=== PATIENT | male | born 1965 | race Caucasian/White ===

== ENCOUNTER 2017-12-26 22:15 | Outpatient (REF) | payer BC, SELFPAY ==
[2017-12-26 22:40] LABS: Abs Immature Grans 0.01 k/cumm (0.0-0.09); Absolute Basophil Count 0.02 k/cumm (0.0-0.2); Absolute Eosinophil Count 0.15 k/cumm (0.0-0.7); Absolute Lymphocyte Count 1.14 k/cumm (1.2-3.4); Absolute Monocyte Count 0.66 k/cumm (0.11-0.7); Absolute Neutrophil Count 2.65 k/cumm (1.2-6.7); Basophils % 0.4; Eosinophils % 3.2; HCT 45.6 % (40.0-50.0); HGB 15.2 g/dL (13.5-17.5); Immature Grans % 0.2; Lymphocytes % 24.6; Mean Corp. HGB Concentration 33.3 g/dL (32.0-36.0); Mean Platelet Volume 10.6 fL (8.0-11.0); Monocytes % 14.3; Neutrophils % 57.3; Platelet Count 215 x1000/uL (130-400); RBC 5.24 m/cumm (4.50-6.00); RBC Distribution Width 13.9 % (11.8-14.1); White Blood Cell Count 4.63 k/cumm (4.4-10.8)
[2017-12-26 22:50] LABS: ALT 46 U/L (12-78); AST 29 U/L (15-37); Albumin 3.7 g/dL (3.4-5.0); Alkaline Phosphatase 74 U/L (46-116); Anion Gap 8.7 mmol/L (3-11); BUN 23 mg/dL (7-18); Bilirubin, Total 0.4 mg/dL (0.2-1.0); CO2 27.3 mmol/L (21.0-32.0); CREATININE 0.93 mg/dL (0.70-1.30); Calcium 8.6 mg/dL (8.5-10.1); Chloride 109 mmol/L (98-107); Cholesterol 203 mg/dL (50-200); Glucose 72 mg/dL (70-100); HDL Cholesterol 52 mg/dL (40-60); LDL CHOLESTEROL 141 mg/dL (<100); Potassium 4.4 mmol/L (3.5-5.1); Sodium 145 mmol/L (136-145); TSH (W/Ref FT4) 0.91 uIU/mL (0.358-3.74); Total Protein 6.9 g/dL (6.4-8.2); Triglyceride 99 mg/dL (30-150)
[2017-12-26 23:41] LABS: Hemoglobin A1C 5.5 % (4.5-6.2)
== END 2017-12-26 22:35 ==
LOC: NCHCN 22:15
PROVIDERS: PCP Nurse Practitioner Family; Visit Provider Nurse Practitioner Family
DX: R53.83 Other fatigue (principal); Z00.00 Encounter for general adult medical examination without abnormal findings; E66.9 Obesity, unspecified
CPT/HCPCS: 80053; 80061; 83721; 83036; 84443; 85025

== ENCOUNTER 2022-01-19 15:34 | Outpatient (REF) | payer BC, SELFPAY ==
[2022-01-19 20:48] LABS: Hemoglobin A1C 5.6 % (<5.7)
[2022-01-19 20:51] LABS: ALT 46 U/L (16-63); AST 37 U/L (15-37); Alkaline Phosphatase 65 U/L (46-116); Anion Gap 9.6 mmol/L (3-11); BUN 23 mg/dL (7-18); Bilirubin, Total 0.5 mg/dL (0.2-1.0); CO2 26.4 mmol/L (21.0-32.0); CREATININE 0.9 mg/dL (0.70-1.30); Calcium 9.6 mg/dL (8.5-10.1); Calculated LDL 117 mg/dL (<100); Chloride 103 mmol/L (98-107); Cholesterol 191 mg/dL (<200); Estimated GFR 99.62 (mL/min/1.73m2); Glucose 78 mg/dL (74-106); HDL Cholesterol 56 mg/dL (40-60); Potassium 4.3 mmol/L (3.5-5.1); Sodium 139 mmol/L (136-145); Total Protein 7.5 g/dL (6.4-8.2); Triglyceride 93 mg/dL (<150)
== END 2022-01-19 15:35 | disposition home or self-care (01) ==
LOC: NCHCN 15:34
PROVIDERS: PCP Nurse Practitioner Family; Visit Provider Nurse Practitioner Family
DX: E66.9 Obesity, unspecified (principal); R03.0 Elevated blood-pressure reading, without diagnosis of hypertension; Z13.1 Encounter for screening for diabetes mellitus; Z13.220 Encounter for screening for lipoid disorders
CPT/HCPCS: 80053; 80061; 83036

== ENCOUNTER 2022-02-16 14:48 | Outpatient (REF) | payer BC, SELFPAY ==
[2022-02-16 15:48] LABS: Anion Gap 6.9 mmol/L (3-11); BUN 21 mg/dL (7-18); CO2 28.1 mmol/L (21.0-32.0); Calcium 9.6 mg/dL (8.5-10.1); Chloride 105 mmol/L (98-107); Estimated GFR 87.24 (mL/min/1.73m2); Glucose 79 mg/dL (74-106); Potassium 4.2 mmol/L (3.5-5.1); Sodium 140 mmol/L (136-145)
== END 2022-02-16 14:49 | disposition home or self-care (01) ==
LOC: NCHCN 14:48
PROVIDERS: PCP Nurse Practitioner Family; Visit Provider Nurse Practitioner Family
DX: R03.0 Elevated blood-pressure reading, without diagnosis of hypertension (principal)
CPT/HCPCS: 80048

== ENCOUNTER 2022-03-02 19:27 | Outpatient (REF) | payer BC, SELFPAY ==
[2022-03-02 15:21] LABS: Anion Gap 5.9 mmol/L (3-11); BUN 20 mg/dL (7-18); CO2 28.1 mmol/L (21.0-32.0); Calcium 9.3 mg/dL (8.5-10.1); Chloride 102 mmol/L (98-107); Estimated GFR 87.24 (mL/min/1.73m2); Glucose 84 mg/dL (74-106); Potassium 4.2 mmol/L (3.5-5.1); Sodium 136 mmol/L (136-145)
== END 2022-03-02 19:28 | disposition home or self-care (01) ==
LOC: NCHCN 19:27
PROVIDERS: PCP Nurse Practitioner Family; Visit Provider Nurse Practitioner Family
DX: R03.0 Elevated blood-pressure reading, without diagnosis of hypertension (principal)
CPT/HCPCS: 80048

== ENCOUNTER 2022-03-25 13:54 | Outpatient (REF) | payer BC, SELFPAY ==
[2022-03-25 14:33] LABS: Anion Gap 9.7 mmol/L (3-11); BUN 23 mg/dL (7-18); CO2 25.3 mmol/L (21.0-32.0); CREATININE 0.9 mg/dL (0.70-1.30); Calcium 9.3 mg/dL (8.5-10.1); Chloride 102 mmol/L (98-107); Glucose 72 mg/dL (74-106); Sodium 137 mmol/L (136-145)
== END 2022-03-25 13:55 | disposition home or self-care (01) ==
LOC: NCHCN 13:54
PROVIDERS: PCP Nurse Practitioner Family; Visit Provider Nurse Practitioner Family
DX: I10 Essential (primary) hypertension (principal)
CPT/HCPCS: 80048

== ENCOUNTER 2022-04-29 17:09 | Outpatient (REF) | payer BC, SELFPAY ==
[2022-04-29 21:00] LABS: Anion Gap 8.4 mmol/L (3-11); BUN 23 mg/dL (7-18); CO2 25.6 mmol/L (21.0-32.0); CREATININE 1.5 mg/dL (0.70-1.30); Calcium 9.4 mg/dL (8.5-10.1); Chloride 105 mmol/L (98-107); Estimated GFR 53.63 (mL/min/1.73m2); Glucose 86 mg/dL (74-106); Potassium 4.2 mmol/L (3.5-5.1); Sodium 139 mmol/L (136-145)
== END 2022-04-29 17:10 | disposition home or self-care (01) ==
LOC: NCHCN 17:09
PROVIDERS: PCP Nurse Practitioner Family; Visit Provider Nurse Practitioner Family
DX: I10 Essential (primary) hypertension (principal)
CPT/HCPCS: 80048

== ENCOUNTER 2022-05-07 12:17 | Outpatient (REF) | payer BC, SELFPAY ==
[2022-05-07 16:25] LABS: Anion Gap 11.7 mmol/L (3-11); BUN 22 mg/dL (7-18); CO2 23.3 mmol/L (21.0-32.0); CREATININE 0.9 mg/dL (0.70-1.30); Calcium 9.6 mg/dL (8.5-10.1); Chloride 104 mmol/L (98-107); Glucose 93 mg/dL (74-106); Potassium 3.9 mmol/L (3.5-5.1); Sodium 139 mmol/L (136-145)
== END 2022-05-07 12:18 | disposition home or self-care (01) ==
LOC: NCHCN 12:17
PROVIDERS: PCP Nurse Practitioner Family; Visit Provider Nurse Practitioner Family
DX: I10 Essential (primary) hypertension (principal)
CPT/HCPCS: 80048

== ENCOUNTER 2022-08-26 12:25 | Outpatient (REF) | payer BC, SELFPAY ==
[2022-08-26 14:52] LABS: Anion Gap 9.3 mmol/L (3-11); BUN 20 mg/dL (7-18); CO2 27.7 mmol/L (21.0-32.0); CREATININE 0.9 mg/dL (0.70-1.30); Calcium 9.7 mg/dL (8.5-10.1); Chloride 103 mmol/L (98-107); Glucose 89 mg/dL (74-106); Potassium 4.3 mmol/L (3.5-5.1); Sodium 140 mmol/L (136-145)
[2022-08-26 22:18] LABS: PSA, Screening 0.6 ng/mL (<=3.5)
== END 2022-08-26 12:26 | disposition home or self-care (01) ==
LOC: NCHCN 12:25
PROVIDERS: PCP Nurse Practitioner Family; Visit Provider Registered Nurse
DX: I10 Essential (primary) hypertension (principal); Z12.5 Encounter for screening for malignant neoplasm of prostate
CPT/HCPCS: 80048; 84153

== ENCOUNTER 2023-05-09 13:06 | Outpatient (CLI) | payer BC, SELFPAY ==
--- NOTE | 2023-05-09 11:15 | DI.RAD_ITS ---
Exam(s) XR STANDING ALIGNMENT EXAM: XR STANDING ALIGNMENT CLINICAL HISTORY: TKR Planning. TECHNIQUE: 2D digital imaging was performed. Four images were obtained. COMPARISON: DOC,DX MO KNEE RIGHT MIN 4V from 05/16/2018 DOC,DX MO KNEE LEFT MIN 4V from 05/16/2018 DOC,DX XR KNEE BILAT 4V* from 07/14/2022 FINDINGS: BONES: The hips are well maintained. Moderate degenerative changes are seen in the knees characteriz ed by joint space narrowing and osteophytes. The findings are most marked in the medial femoral tibi al joints of each knee. The ankles are well maintained.There is no significant leg length discrepanc y. SOFT TISSUE: Normal. IMPRESSION: Moderate osteoarthritis of the knees bilaterally. DATA REPOSITORY: RADIATION DOSE DELIVERED:
--- OUTSIDE RECORDS SUMMARY | 2023-05-09 13:16 | XMS_ITS | CCD ---
Author Name Unknown Address [address] [place] [address] [id number] Organization Unknown Address [address] [place], [place] [id number] Care Team Providers Care Independent Sales Representative Name Role Phone BRYAN BAKER Attending Physician [phone] BRYAN BAKER Rounding (Secondary) Physician [phone] Vital Signs Unknown or Not Available. Allergies Unknown or Not Available. Procedures Unknown or Not Available. History of Immunizations Unknown or Not Available. Problems Unknown or Not Available. Results Unknown or Not Available. Active Medications Unknown or Not Available. Medications Administered During Visit Unknown or Not Available. Encounters Encounter Diagnosis Diagnosis Code Start Date Idiopathic osteoarthritis [id number] 2022 Social History Smoking Status Code Start Date End Date Never smoker [id number] Patient Decision Aids Unknown or Not Available. Discharge Instructions You were admitted to [facility] on 08/02/2022 00:00 with a principal diagnosis of Bilateral primary osteoarthritis of knee You were discharged from [facility] on 08/02/2022 00:00 Should you have any questions prior to discharge, please contact a member of your healthcare team. If you have left the hospital and have any questions, please contact your primary care physician. Chief Complaint and Reason For Visit Unknown or Not Available. Function Status Unknown or Not Available. Plan of Care Unknown or Not Available. Referral/Transition of Care Unknown or Not Available.
--- OUTSIDE RECORDS SUMMARY | 2023-05-09 13:16 | XMS_ITS | CCD ---
Author Name Unknown Address [address] [place] [address] [id number] Organization Unknown Address [address] [place], [place] [id number] Care Team Providers Care Qa Lead Name Role Phone MANUELA CHAMORRO Attending Physician [phone] MANUELA CHAMORRO Rounding (Secondary) Physician [phone] Vital Signs Unknown or Not Available. Allergies Unknown or Not Available. Procedures Unknown or Not Available. History of Immunizations Unknown or Not Available. Problems Unknown or Not Available. Results Unknown or Not Available. Active Medications Unknown or Not Available. Medications Administered During Visit Unknown or Not Available. Encounters Encounter Diagnosis Diagnosis Code Start Date Idiopathic osteoarthritis [id number] 2022 Social History Smoking Status Code Start Date End Date Never smoker [id number] Patient Decision Aids Unknown or Not Available. Discharge Instructions You were admitted to [facility] on 07/21/2022 00:00 with a principal diagnosis of Bilateral primary osteoarthritis of knee You were discharged from [facility] on 07/21/2022 00:00 Should you have any questions prior [...]
--- OUTSIDE RECORDS SUMMARY | 2023-05-09 13:16 | XMS_ITS | CCD ---
Author Name Unknown Address [address] [place] [id number] Organization Unknown Address [address] [place], [place] [id number] Care Team Providers Care Change Management Expert Name Role Phone BRYAN BAKER Attending Physician [phone] BRYAN BAKER Rounding (Secondary) Physician [phone] Vital Signs Unknown or Not Available. Allergies Unknown or Not Available. Procedures Unknown or Not Available. History of Immunizations Unknown or Not Available. Problems Unknown or Not Available. Results Unknown or Not Available. Active Medications Unknown or Not Available. Medications Administered During Visit Unknown or Not Available. Encounters Encounter Diagnosis Diagnosis Code Start Date Idiopathic osteoarthritis [id number] 2021 Social History Smoking Status Code Start Date End Date Never smoker [id number] Patient Decision Aids Unknown or Not Available. Discharge Instructions You were admitted to [facility] on 08/25/2021 13:38 with a principal diagnosis of Bilateral primary osteoarthritis of knee You were discharged from [facility] on 08/25/2021 00:00 Should you have any questions prior [...]
--- OUTSIDE RECORDS SUMMARY | 2023-05-09 13:17 | XMS_ITS | CCD ---
Author Name Unknown Address [address] [place] [id number] Organization Unknown Address [address] [place], [place] [id number] Care Team Providers Care Underpresser Hand Name Role Phone BERTRAND MONCADA Attending Physician [phone] BERTRAND MONCADAing (Secondary) Physician [phone] Vital Signs Unknown or Not Available. Allergies Unknown or Not Available. Procedures Unknown or Not Available. History of Immunizations Unknown or Not Available. Problems Unknown or Not Available. Results Unknown or Not Available. Active Medications Unknown or Not Available. Medications Administered During Visit Unknown or Not Available. Encounters Encounter Diagnosis Diagnosis Code Start Date Idiopathic osteoarthritis 311261823 2021 Social History Smoking Status Code Start Date End Date Never smoker [id number] Patient Decision Aids Unknown or Not Available. Discharge Instructions You were admitted to [facility] on 09/03/2021 14:53 with a principal diagnosis of Bilateral primary osteoarthritis of knee You were discharged from [facility] on 09/03/2021 00:00 Should you have any questions prior [...]
--- OUTSIDE RECORDS SUMMARY | 2023-05-09 13:17 | XMS_ITS | CCD ---
Author Name Unknown Address [address] [place], [place] [id number] Organization Unknown Address [address] [place], [place] [id number] Care Team Providers Care Child Psychiatrist Name Role Phone AYE BAI Attending Physician [phone] AYE BAI Rounding (Secondary) Physician [phone] Vital Signs Unknown or Not Available. Allergies Unknown or Not Available. Procedures Unknown or Not Available. History of Immunizations Unknown or Not Available. Problems Unknown or Not Available. Results Unknown or Not Available. Active Medications Unknown or Not Available. Medications Administered During Visit Unknown or Not Available. Encounters Encounter Diagnosis Diagnosis Code Start Date Idiopathic osteoarthritis 995902320 2022 Social History Smoking Status Code Start Date End Date Never smoker [id number] Patient Decision Aids Unknown or Not Available. Discharge Instructions You were admitted to [facility] on 03/01/2023 11:15 with a principal diagnosis of Bilateral primary osteoarthritis of knee You were discharged from [facility] on 03/01/2023 13:21 Should you have any questions prior to [...]
== END 2023-05-09 13:07 | disposition home or self-care (01) ==
LOC: DIORS 13:08
PROVIDERS: PCP Nurse Practitioner Family; Visit Provider Physician Assistant
DX: M17.0 Bilateral primary osteoarthritis of knee (principal)
CPT/HCPCS: 77073

== ENCOUNTER 2023-06-02 01:20 | Outpatient (CLI) | payer BC, SELFPAY ==
--- OUTSIDE RECORDS SUMMARY | 2023-06-02 01:22 | XMS_ITS | CCD ---
Author Name Unknown Address [address] [place] [id number] Organization Unknown Address [address] [place], [place] [phone] Care Team Providers Care Strategic Sourcing Specialist Name Role Phone BRYAN BAKER Attending Physician [phone] BRYAN BAKER Rounding (Secondary) Physician [phone] Vital Signs Unknown or Not Available. Allergies Unknown or Not Available. Procedures Unknown or Not Available. History of Immunizations Unknown or Not Available. Problems Unknown or Not Available. Results Unknown or Not Available. Active Medications Unknown or Not Available. Medications Administered During Visit Unknown or Not Available. Encounters Encounter Diagnosis Diagnosis Code Start Date Idiopathic osteoarthritis [id number] 2022 Social History Smoking Status Code Start Date End Date Never smoker [id number] Patient Decision Aids Unknown or Not Available. Discharge Instructions You were admitted to [facility] on 08/02/2022 00:00 with a principal diagnosis of Bilateral primary osteoarthritis of knee You were discharged from [facility] on 08/02/2022 00:00 Should you have [...]
--- OUTSIDE RECORDS SUMMARY | 2023-06-02 01:22 | XMS_ITS | CCD ---
Author Name Unknown Address [address] [place] [address] [id number] Organization Unknown Address [address] [place], [place] [phone] Care Team Providers Care Security Escort Name Role Phone MANUELA CHAMORRO Attending Physician [phone] MANUELA CHAMORRO Rounding (Secondary) Physician [phone] Vital Signs Unknown or Not Available. Allergies Unknown or Not Available. Procedures Unknown or Not Available. History of Immunizations Unknown or Not Available. Problems Unknown or Not Available. Results Unknown or Not Available. Active Medications Unknown or Not Available. Medications Administered During Visit Unknown or Not Available. Encounters Encounter Diagnosis Diagnosis Code Start Date Idiopathic osteoarthritis 138953776 2022 Social History Smoking Status Code Start Date End Date Never smoker [id number] Patient Decision Aids Unknown or Not Available. Discharge Instructions You were admitted to [facility] on 07/21/2022 00:00 with a principal diagnosis of Bilateral primary osteoarthritis of knee You were discharged from [facility] on 07/21/2022 00:00 Should you have [...]
--- OUTSIDE RECORDS SUMMARY | 2023-06-02 01:23 | XMS_ITS | CCD ---
Author Name Unknown Address [address] [place] [id number] Organization Unknown Address [address] [place], [place] [phone] Care Team Providers Care Commercial Airline Pilot Name Role Phone BERTRAND MONCADA Attending Physician [phone] BERTRAND MONCADAing (Secondary) Physician [phone] Vital Signs Unknown or Not Available. Allergies Unknown or Not Available. Procedures Unknown or Not Available. History of Immunizations Unknown or Not Available. Problems Unknown or Not Available. Results Unknown or Not Available. Active Medications Unknown or Not Available. Medications Administered During Visit Unknown or Not Available. Encounters Encounter Diagnosis Diagnosis Code Start Date Idiopathic osteoarthritis [id number] 2021 Social History Smoking Status Code Start Date End Date Never smoker [id number] Patient Decision Aids Unknown or Not Available. Discharge Instructions You were admitted to [facility] on 09/03/2021 14:53 with a principal diagnosis of Bilateral primary osteoarthritis of knee You were discharged from [facility] on 09/03/2021 00:00 Should you have [...]
--- OUTSIDE RECORDS SUMMARY | 2023-06-02 01:23 | XMS_ITS | CCD ---
Author Name Unknown Address [address] [place], [place] [id number] Organization Unknown Address [address] [place], [place] [id number] Care Team Providers Care Furniture Repair Technician Name Role Phone AYE BAI Attending Physician [phone] AYE BAI Rounding (Secondary) Physician [phone] Vital Signs Unknown or Not Available. Allergies Unknown or Not Available. Procedures Unknown or Not Available. History of Immunizations Unknown or Not Available. Problems Unknown or Not Available. Results Unknown or Not Available. Active Medications Unknown or Not Available. Medications Administered During Visit Unknown or Not Available. Encounters Encounter Diagnosis Diagnosis Code Start Date Idiopathic osteoarthritis 183904609 2022 Social History Smoking Status Code Start Date End Date Never smoker [id number] Patient Decision Aids Unknown or Not Available. Discharge Instructions You were admitted to [facility] on 03/01/2023 11:15 with a principal diagnosis of Bilateral primary osteoarthritis of knee You were discharged from [facility] on 03/01/2023 13:21 Should [...]
--- OUTSIDE RECORDS SUMMARY | 2023-06-02 01:23 | XMS_ITS | CCD ---
Author Name Unknown Address [address] [place] [address] [id number] Organization Unknown Address [address] [place], [place] [id number] Care Team Providers Care Lightning Rod Installer Name Role Phone BRYAN BAKER Attending Physician [phone] BRYAN BAKER Rounding (Secondary) Physician [phone] Vital Signs Unknown or Not Available. Allergies Unknown or Not Available. Procedures Unknown or Not Available. History of Immunizations Unknown or Not Available. Problems Unknown or Not Available. Results Unknown or Not Available. Active Medications Unknown or Not Available. Medications Administered During Visit Unknown or Not Available. Encounters Encounter Diagnosis Diagnosis Code Start Date Idiopathic osteoarthritis 578416096 2021 Social History Smoking Status Code Start Date End Date Never smoker [id number] Patient Decision Aids Unknown or Not Available. Discharge Instructions You were admitted to [facility] on 08/25/2021 13:38 with a principal diagnosis of Bilateral primary osteoarthritis of knee You were discharged from [facility] on 08/25/2021 00:00 Should you have [...]
--- OUTSIDE RECORDS SUMMARY | 2023-06-02 01:23 | XMS_ITS | CCD ---
Author Name Unknown Address [address] [place] [id number] Organization Unknown Address [address] [place], [place] [phone] Care Team Providers Care Computer Information Science Professor Name Role Phone MANUELA CHAMORRO Attending Physician [phone] MANUELA CHAMORRO Rounding (Secondary) Physician [phone] Vital Signs Unknown or Not Available. Allergies Unknown or Not Available. Procedures Unknown or Not Available. History of Immunizations Unknown or Not Available. Problems Unknown or Not Available. Results Unknown or Not Available. Active Medications Unknown or Not Available. Medications Administered During Visit Unknown or Not Available. Encounters Encounter Diagnosis Diagnosis Code Start Date Idiopathic osteoarthritis [id number] 2022 Social History Smoking Status Code Start Date End Date Never smoker [id number] Patient Decision Aids Unknown or Not Available. Discharge Instructions You were admitted to [facility] on 07/14/2022 00:00 with a principal diagnosis of Bilateral primary osteoarthritis of knee You were discharged from [facility] on 07/14/2022 00:00 Should you have any questions prior [...]
--- OUTSIDE RECORDS SUMMARY | 2023-06-02 01:23 | XMS_ITS | CCD ---
Author Name Unknown Address [address] [place] [id number] Organization Unknown Address [address] [place], [place] [phone] Care Team Providers Care Black Belt Name Role Phone BERTRAND MONCADA Attending Physician [phone] BERTRAND MONCADAing (Secondary) Physician [phone] Vital Signs Unknown or Not Available. Allergies Unknown or Not Available. Procedures Unknown or Not Available. History of Immunizations Unknown or Not Available. Problems Unknown or Not Available. Results Unknown or Not Available. Active Medications Unknown or Not Available. Medications Administered During Visit Unknown or Not Available. Encounters Encounter Diagnosis Diagnosis Code Start Date Idiopathic osteoarthritis [id number] 2021 Social History Smoking Status Code Start Date End Date Never smoker [id number] Patient Decision Aids Unknown or Not Available. Discharge Instructions You were admitted to [facility] on 09/11/2021 14:55 with a principal diagnosis of Bilateral primary osteoarthritis of knee You were discharged from [facility] on 09/11/2021 00:00 Should you have any questions prior [...]
[2023-06-02 11:43] LABS: HCT 43.3 % (40.0-50.0); MCH 29.8 pg (27.0-33.0); MCHC 34.6 % (32.0-36.0); MCV 86 fL (80-95); MPV 9.2 fL (8.0-11.0); Platelet Count 236 10^3/uL (130-400); RBC 5.04 10^6/uL (4.36-5.78); RDW 13.7 % (11.8-14.1); RDW-SD 42.6 fL
[2023-06-02 12:11] LABS: Anion Gap 6.2 mmol/L (3-11); BUN 22 mg/dL (7-18); CO2 28.8 mmol/L (21.0-32.0); Calcium 9.6 mg/dL (8.5-10.1); Chloride 104 mmol/L (98-107); Glucose 92 mg/dL (74-106); Potassium 4.1 mmol/L (3.5-5.1); Sodium 139 mmol/L (136-145)
== END 2023-06-02 01:21 | disposition home or self-care (01) ==
LOC: LBO 01:21
PROVIDERS: PCP Nurse Practitioner Family; Visit Provider Student in an Organized Health Care Education/Training Program
DX: Z01.818 Encounter for other preprocedural examination
CPT/HCPCS: 36415; 80048; 85027

== ENCOUNTER 2023-06-15 06:30 | Observation (INO) | payer BC, SELFPAY ==
[2023-06-15] VITALS (12 sets, daily range): BP systolic 121–166; BP diastolic 72–92; PULSE 56–71; RESP 13–23; TEMP 35.6–36.6; O2SAT 98–100; BMI 38.2
[2023-06-15] MEDS: Gabapentin 300 MG CAP PO ×2 (08:50→21:17)
[2023-06-15] MEDS: Celecoxib 200 MG CAP 400 MG PO (08:50)
[2023-06-15] MEDS: Acetaminophen 500 MG TAB 1000 MG PO ×3 (08:50→19:45)
[2023-06-15] MEDS: Lactated Ringers 1,000 ML 80 ML IV (09:04)
--- NOTE | 2023-06-15 11:25 | W.ANESPRE ---
General Info Date of Service Date Performed: 06/15/23 Height: 5 ft 9.5 in Weight: 119 kg Body Mass Index (BMI): 38.2 Surgical Procedure: Operation Date: 06/15/23 12:20 Proposed Procedure Side Surgeon p Knee Total Arthroplasty Bilateral Bilateral Thad Majano MD Meds Allergies and Home Medications Allergies Allergy/AdvReac Type Severity Reaction Status Date / Time codeine AdvReac Intermediate Nausea Verified 06/15/23 08:45 Home Medication Medication Instructions Recorded ibuprofen 125 mg-acetaminophen 250 1 tab PO Q8H PRN 05/09/23 mg tablet (Advil Dual Action) irbesartan 150 1 tab PO DAILY 05/09/23 mg-hydrochlorothiazide 12.5 mg tablet ibuprofen 200 mg tablet 800 mg PO BID PRN 06/03/23 modafinil 100 mg tablet 100 mg PO DAILY 06/03/23 Current Visit Medications: Current Medications Generic Name Dose Route Start Last Admin Trade Name Freq PRN Reason Stop Dose Admin Acetaminophen 1,000 mg 06/15/23 06:00 06/15/23 08:50 Acetaminophen 500 Mg Tab PO 06/15/23 23:59 1,000 mg PREOP MERVIN Administration Celecoxib 400 mg 06/15/23 06:00 06/15/23 08:50 Celecoxib 200 Mg Cap PO 06/15/23 23:59 400 mg PREOP MERVIN Administration Gabapentin 300 mg 06/15/23 06:00 06/15/23 08:50 Gabapentin 300 Mg Cap PO 06/15/23 23:59 300 mg PREOP MERVIN Administration Tranexamic Acid 1,000 mg/ 60 mls @ 360 mls/hr 06/15/23 06:00 Sodium Chloride IVPB 06/15/23 23:59 PREOP MERVIN Tranexamic Acid 1,000 mg/ 60 mls @ 360 mls/hr 06/15/23 06:00 Sodium Chloride IVPB 06/15/23 23:59 DIRECTED MERVIN Cefazolin Sodium 3,000 mg/ 100 mls @ 200 mls/hr 06/15/23 06:00 Sodium Chloride IVPB 06/15/23 16:00 PREOP MERVIN Ringer's Solution 1,000 mls @ 80 mls/hr 06/15/23 06:00 06/15/23 09:04 IV 07/14/23 23:59 80 mls/hr INFUSION MERVIN Administration IV Miscellaneous Supplies 1 each 06/15/23 06:00 Iv Access IV 07/14/23 23:59 DIRECTED MERVIN Sodium Chloride 0 ml 06/15/23 06:00 Normal Saline Flush 10 Ml Syr IV 07/14/23 23:59 PRN PRN Sodium Chloride 0 ml 06/15/23 06:00 Normal Saline 10 Ml Vial IJ 07/14/23 23:59 DIRECTED PRN Sterile Water 0 ml 06/15/23 06:00 Water,Injection,Sterile 10 Ml Vial IJ 07/14/23 23:59 DIRECTED PRN PFSH Active Problems Active Problems: Problem Status Onset Code Primary osteoarthritis of knees, bilateral M17.0 Medical History Medical History MARILYN (obstructive sleep apnea) Essential hypertension Tobacco Smoking/Tobacco Use Status: Never Alcohol Alcohol Intake: current Alcohol intake frequency: a few times a week Substance Use Substance use: Never Substance use type: does not use Details: Last drink was 4 shots of bourbon around 1900 on 06/13 Vital Signs and Lab Results Vital Signs Most Recent Vital Signs in EMR: Most Recent Vital Signs Temp Pulse Resp BP Pulse Ox 36.4 C L 56 L 20 140/84 100 06/15/23 11:13 06/15/23 11:13 06/15/23 11:13 06/15/23 11:13 06/15/23 11:13 Lab Results Blood Type / Crossmatch: No Data to Display Complete Blood Count: White Blood Count 4.70 10^3/uL (4.4-10.8) 06/02/23 11:28 Red Blood Count 5.04 10^6/uL (4.36-5.78) 06/02/23 11:28 Hemoglobin 15.0 g/dL (13.5-17.5) 06/02/23 11:28 Hematocrit 43.3 % (40.0-50.0) 06/02/23 11:28 Platelet Count 236 10^3/uL (130-400) 06/02/23 11:28 Complete Metabolic Panel: Sodium 139 mmol/L (136-145) 06/02/23 11:28 Potassium 4.1 mmol/L (3.5-5.1) 06/02/23 11:28 Chloride 104 mmol/L (98-107) 06/02/23 11:28 Carbon Dioxide 28.8 mmol/L (21.0-32.0) 06/02/23 11:28 BUN 22 mg/dL (7-18) H 06/02/23 11:28 Creatinine 1.0 mg/dL (0.70-1.30) 06/02/23 11:28 Est GFR (CKD-EPI 2020) 86.70 (mL/min/1.73m2) 06/02/23 11:28 Calcium 9.6 mg/dL (8.5-10.1) 06/02/23 11:28 Glucose 92 mg/dL (74-106) 06/02/23 11:28 Liver Function Panel: No Data to Display Coagulation Panel: No Data to Display Cardiac Panel: No Data to Display Arterial Blood Gas: No Data to Display Venous Blood Gas: No Data to Display Pancreas Panel: No Data to Display Thyroid Panel: No Data to Display Infectious Disease: No Data to Display Blood Cultures: No Data to Display Toxicology Panel: No Data to Display Anesthesia Assessment and Plan Anesthesia History Personal History: No History of Anesthesia Complications Family History: No Family History of Anesthesia Complications Exercise Tolerance Exercise Tolerance: Metabolic Equivalents<4 Pertinent Negatives Pertinent Negatives: No Symptoms of GERD, No Major Cardiovascular Symptoms or Complaints, No Major Pulmonary Symptoms or Complaints and No History of CVA/TIA Cardiac & Pulmonary Exam Cardiac Exam: Normal S1/S2 Heart Sounds Pulmonary Exam: Clear Bilateral Breath Sounds Implantable Cardiac Device Does patient have a Pacemaker or an ICD?: No Airway Exam Known Difficult Airway: No Mallampati Class: 4 Mouth Opening: Narrow (< 3cm) Thyromental Distance: Greater than 3 cm Neck Range of Motion: Full ROM Neck Circumference: Normal Teeth Condition: Normal Dentition (missing tooth L upper side ) ASA Classification ASA Score: ASA 2 Emergency Case?: No NPO Status NPO Status: NPO Clears >2 hours, Solids >8 hours Anesthesia Plan Resuscitation Status: Full Code Anesthesia Technique: Spinal Anesthesia Airway Planned: Natural Airway Pain Management: Surgeon and patient request nerve block Monitors Used: Standard Monitors
--- NOTE | 2023-06-15 11:27 | W.ANESNERVE ---
Nerve Block Single Injection Procedure Date and Time Date Performed: 06/15/23 Procedure Start: 11:13 Location Where Procedure Performed Procedure Location: Day Surgery Unit Reason Performed: Postoperative Analgesia Requesting Provider: Thad Majano Timeout Performed Timeout Performed: Yes Monitoring Used ECG, Blood Pressure, SpO2, ETCO2 and See EMR for corresponding vital signs Sterility Sterility: Hand Hygiene, Surgical Cap, Surgical Mask, Sterile Gloves and Chlorhexidine Sedation Given During Procedure Sedation Given (Indicate Dose Given): Versed IV Dose:: 2mg Patient Mental Status Patient Mental Status: Sedate with meaningful communication Nerve Block 1st Nerve Block: Laterality: Bilateral Block Type: Adductor Canal Ultrasound Image Saved?: Yes Needle / Catheter Used: 100mm SonoPlex II Local Anesthetic Bolus (Indicate Dose Given): Lidocaine used for local infiltration of skin, Injected in 3-5ml increments after negative blood aspiration, Half of Total block solution given into each side and Bupivacaine 0.25% Dose:: 30mL Additives (Indicate Dose Given): None Ultrasound: Sterile probe cover and gel used Nerve Stimulator: Not Used Paresthesia: None Procedure Tolerated: No Complications and Patient tolerated well Procedure Outcome: Successful Performed By: Lisa Owen Supervised By: Vikas Espinoza
[2023-06-15] MEDS: Normal Saline 1,000 ML 30 ML IV (11:45)
[2023-06-15] MEDS: ceFAZolin 3,000 MG in Normal Saline 100 ML 200 MG IVPB (11:47)
[2023-06-15] MEDS: Tranexamic Acid 1,000 MG/10 ML VIAL 1000 MG (12:07)
--- NOTE | 2023-06-15 14:50 | W.PM.OP ---
Date of service: 06/15/23 Time of Service: 12:00 Operative Note Operative Note DATE OF PROCEDURE: 06/15/23 PRE-OP DIAGNOSIS: Bilateral Knee Arthritis POST-OP DIAGNOSIS: same PROCEDURE: Bilateral Knee Arthroplasty SURGEON: Thad Majano PERSONAL COMPUTER SPECIALIST: Shant Tang ANESTHESIA TYPE: Spinal Refer to Anesthesia Record ESTIMATED BLOOD LOSS: 400 PATHOLOGY: none sent COMPLICATIONS: None Patient was transported to: PACU Patient's condition: stable Implants: LEFT: 1. Depuy Attune Cementless Cruciate Retaining Femoral Component, Size 9 2. Depuy Attune Cementless Fixed Bearing Tibial Component, Size 9 3. Depuy Attune 9x7 CR/FB Poly 4. Depuy Attune Patellar Component, Size 41 RIGHT: 1. Depuy Attune Cementless Cruciate Retaining Femoral Component, Size 9 2. Depuy Attune Cementless Fixed Bearing Tibial Component, Size 8 3. Depuy Attune 9x8 CR/FB Poly 4. Depuy Attune Patellar Component, Size 41 Indications: I have seen Liliam in clinic for symptoms of bilateral knee arthritis, confirmed with radiographic findings. Liliam has exhausted nonoperative methods and was having significant limitations in daily function and desired better function and less pain. I discussed the technical details of a knee replacement. I explained the risks of the procedure to include, but not limited to, bleeding, infection, pain, stiffness, fracture, damage to nerves and vessels, damage to muscles and tendons, loosening, need for repeat procedure, blood clot and cardiopulmonary demise. Despite these risks, he elected to proceed. Findings: There was significant arthritis throughout both knees. Procedure Description: Liliam was greeted in the preoperative holding area where the correct side was identified and marked. The consent was reviewed with the patient and signed. The history and physical was updated. All questions were answered. Preoperative medications were administered: Acetaminophen 1000mg, Celebrex 400mg, and Gabapentin 300mg. An adductor canal block was then administered by the anesthesia team in the [facility]. He was taken back to the operating room. A spinal anesthestic was then administered. The patient was placed into the supine position on the operating room table. A nonsterile tourniquet was placed high onto the leg but only used for cementing. Posts were placed for positioning during the procedure. All bony prominences were well padded. Prophylactic antibiotics in the form of Cefazolin were administered. 1g of Tranxemic Acid was given intravenously within 30 minutes of incision. Both legs were then prepped with Chloraprep and draped in a standard fashion with impervious drapes and stockinette. A second prep with Chloraprep was performed prior to application of Iodine impregnated skin protection on the first knee, RIGHT knee. A timeout to confirm correct identity, side and site, procedure, allergies, anesthesia, and medical concerns was performed. RIGHT KNEE: With the knee in some flexion, a midline incision was made overlying the knee. Full thickness skin flaps were raised once the extensor mechanism was encountered. These were raised medially and laterally. Any bleeding was controlled with electrocautery. Once the extensor mechanism was fully exposed, a medial parapatellar arthrotomy was performed in a flexed position. All bleeding from the arthrotomy and the geniculate arteries was coagulated. A medial subperiosteal peel was performed with electrocautery to the midcoronal plane. Due to the significant varus deformity the entire medial tibial plateau was exposed. The fat pad was removed while keeping the patellar tendon protected. The anterior distal femur synovium was removed for later visualization. The ACL and PCL were resected and the anterior horn of the lateral meniscus was transected. The knee was then flexed with the patella everted. Large osteophytes from the tibia were removed. Large osteophytes from the femur were removed. Using a step drill, and based on preoperative templating, the femoral canal was entered. This was done with a step drill without any difficulty. The intramedullary distal femoral cut guide was inserted, set to a 5 degree valgus cut and 9mm cut thickness. The distal femoral cut guide was then held in position and pinned. With the soft tissues protected, the distal cut was performed. This was passed over a few times to ensure a planar cut. I then turned attention to the tibia. The extramedullary guide was placed onto the leg. The distal aspect was slid medial to adjust for position of center of ankle and stay in line with shaft of the tibia. Approximately 3-5 degrees of posterior slope was kept in the proximal cutting guide. The center of the guide was aligned with the PCL. The stylus was used to assess cut thickness. The medial side, most involved side, was set for a 4mm cut. This was then held in position and pinned into place with 2 additional pins and a cross pin for stability. The medial and lateral collateral ligaments were protected and the cut was performed. With this completed, it was assessed and noted to be of appropriate dimensions. The guide was removed. A spacer block was inserted and the knee was brought into extension. The 7mm spacer block provided full extension, without hyperextension and with stability of both the medial and lateral collateral ligaments was assessed. The pins from the femur and the tibia were then removed. The distal femur was then sized. The anterior stylus was placed onto the lateral ridge of the anterior femur. This indicated a size 9 femur. The external rotation of the guide was adjusted to 0 degrees to match the epicondylar axis, perpendicular to Judi?s line. The 4-in-1 cutting guide was the placed. The posterior medial femur cut was evaluated and appeared of good thickness. The spacer block was inserted underneath the cutting guide and stability was confirmed in 90 degrees of flexion. An neil wing was used to confirm appropriate position of the anterior cut to avoid notching. This cutting guide was ensured to be flush on the cut surface and then pinned into place with headed pins. While protecting the soft tissues, quad tendon, and collateral ligaments, the anterior and posterior cuts were performed with a saw. The central two pins were removed and the posterior and anterior chamfers were cut next. The notch-cutting guide was placed. This was pinned to lateralize the femoral component as much as possible while keeping it flush on the cut surface. This was then pinned into position. A reciprocating saw was used to make the notch cut. A rasp smoothed the cut surfaces. The medial and lateral menisci were removed. A trial femoral component was then inserted, impacted down to the cut surfaces, and the lug holes were drilled. A provisional trial tibial component was placed and the knee was brought through range of motion. The polyethylene was trialed until there was good flexion and extension with excellent stability to the medial and lateral collaterals. The patella was tracking without thumbs. A size 8mm polyethylene component provided the best range of motion and stability with less than 2mm gapping with medial and lateral stress and full extension without significant hyperextension. The tibial cut surface was fully exposed. The tibia was then sized as a 8. The tibia had been previously marked during trialing to correspond to the center of the tibial component to help with rotation. The trial was aligned to this shant, approximately rotated to the medial 1/3rd of the tibial tubercle. The trial was pinned into place. The tibia was prepared with a reamer and a keel punch and lug holes. The knee was then brought into extension and the patella was measured as 31mm. Using the patellar clamp and cut guide, this was resected to a flat surface with at least 13mm of thickness remaining. The size 41 patella fit the best. This was oriented and then clamped into position. The lugs were drilled. The trial components were removed. The final components were opened on the back table. The periosteal and capsular tissues, especially posteriorly, around the knee were then systematically injected with a periarticular cocktail consisting of 246mg of Ropivacaine, 0.5mg of Epinephrine, 0.08mg of Clonidine, and 30mg of Ketorolac, diluted to 100cc. On the back table, with the implants opened, the cement was mixed. One batch of high viscosity cement was prepared with vacuum assistance. After the cement was ready a small amount was placed on the cut surface of the patella and the patellar button was clamped into position and held. While the cement was hardening, the cementless knee components were placed. Starting with the tibial component, the tibia was subluxed anteriorly and the lug holes of the component were lined up. The tibia was then impacted with an impactor and mallet until the tibial component was in contact with the tibia. The final polyethylene component was inserted. Then, the femoral component was inserted. The lug holes were aligned and the component was impacted into position. The knee was irrigated with Surgiphor Betadine solution. This was allowed to sit in the knee for 3 minutes and then it was irrigated out with saline. After the cement had finally cured, approximately 15min, the clamp was removed from the patella and the knee was taken through range of motion. The patella was tracking with a no-thumbs technique. The capsule was then reapproximated with a No. 1 Vicryl at multiple locations. The capsule was finally closed with a No. 2 Stratafix, barbed suture. The second dosing of 1g TXA was started. Deep tissues were then reapproximated with 0 Vicryl and 2-0 Vicryl. The skin was closed with a running 3-0 Monocryl in a subcuticular fashion. LEFT KNEE: With the knee in some flexion, a midline incision was made overlying the knee. Full thickness skin flaps were raised once the extensor mechanism was encountered. These were raised medially and laterally. Any bleeding was controlled with electrocautery. Once the extensor mechanism was fully exposed, a medial parapatellar arthrotomy was performed in a flexed position. All bleeding from the arthrotomy and the geniculate arteries was coagulated. A medial subperiosteal peel was performed with electrocautery to the midcoronal plane. Due to the significant varus deformity the entire medial tibial plateau was exposed. The fat pad was removed while keeping the patellar tendon protected. The anterior distal femur synovium was removed for later visualization. The ACL and PCL were resected and the anterior horn of the lateral meniscus was transected. The knee was then flexed with the patella everted. Large osteophytes from the tibia were removed. Large osteophytes from the femur were removed. Using a step drill, and based on preoperative templating, the femoral canal was entered. This was done with a step drill without any difficulty. The intramedullary distal femoral cut guide was inserted, set to a 5 degree valgus cut and 9mm cut thickness. The distal femoral cut guide was then held in position and pinned. With the soft tissues protected, the distal cut was performed. This was passed over a few times to ensure a planar cut. I then turned attention to the tibia. The extramedullary guide was placed onto the leg. The distal aspect was slid medial to adjust for position of center of ankle and stay in line with shaft of the tibia. Approximately 3-5 degrees of posterior slope was kept in the proximal cutting guide. The center of the guide was aligned with the PCL. The stylus was used to assess cut thickness. The medial side, most involved side, was set for a 4mm cut. This was then held in position and pinned into place with 2 additional pins and a cross pin for stability. The medial and lateral collateral ligaments were protected and the cut was performed. With this completed, it was assessed and noted to be of appropriate dimensions. The guide was removed. A spacer block was inserted and the knee was brought into extension. The 7mm spacer block provided full extension, without hyperextension and with stability of both the medial and lateral collateral ligaments was assessed. The pins from the femur and the tibia were then removed. The distal femur was then sized. The anterior stylus was placed onto the lateral ridge of the anterior femur. This indicated a size 9 femur. The external rotation of the guide was adjusted to 0 degrees to match the epicondylar axis, perpendicular to Judi?s line. The 4-in-1 cutting guide was the placed. The posterior medial femur cut was evaluated and appeared of good thickness. The spacer block was inserted underneath the cutting guide and stability was confirmed in 90 degrees of flexion. An neil wing was used to confirm appropriate position of the anterior cut to avoid notching. This cutting guide was ensured to be flush on the cut surface and then pinned into place with headed pins. While protecting the soft tissues, quad tendon, and collateral ligaments, the anterior and posterior cuts were performed with a saw. The central two pins were removed and the posterior and anterior chamfers were cut next. The notch-cutting guide was placed. This was pinned to lateralize the femoral component as much as possible while keeping it flush on the cut surface. This was then pinned into position. A reciprocating saw was used to make the notch cut. A rasp smoothed the cut surfaces. The medial and lateral menisci were removed. A trial femoral component was then inserted, impacted down to the cut surfaces, and the lug holes were drilled. A provisional trial tibial component was placed and the knee was brought through range of motion. There was noted to be excellent extension and flexion. There was no significant instability. The patella was tracking without thumbs. A size 7mm polyethylene component provided the best range of motion and stability with less than 2mm gapping with medial and lateral stress and full extension without significant hyperextension. The tibial cut surface was fully exposed. The tibia was then sized as a 9. The tibia had been previously marked during trialing to correspond to the center of the tibial component to help with rotation. The trial was aligned to this shant, approximately rotated to the medial 1/3rd of the tibial tubercle. The trial was pinned into place. The tibia was prepared with a reamer and a keel punch and lug holes. The knee was then brought into extension and the patella was measured as 30mm. Using the patellar clamp and cut guide, this was resected to a flat surface with at least 13mm of thickness remaining. The size 41 patella fit the best. This was oriented and then clamped into position. The lugs were drilled. The trial components were removed. The final components were opened on the back table. The periosteal and capsular tissues, especially posteriorly, around the knee were then systematically injected with a periarticular cocktail consisting of 246mg of Ropivacaine, 0.5mg of Epinephrine, 0.08mg of Clonidine, and 30mg of Ketorolac, diluted to 100cc. On the back table, with the implants opened, the cement was mixed. One batch of high viscosity cement was prepared with vacuum assistance. After the cement was ready a small amount was placed on the cut surface of the patella and the patellar button was clamped into position and held. While the cement was hardening, the cementless knee components were placed. Starting with the tibial component, the tibia was subluxed anteriorly and the lug holes of the component were lined up. The tibia was then impacted with an impactor and mallet until the tibial component was in contact with the tibia. The final polyethylene component was inserted. Then, the femoral component was inserted. The lug holes were aligned and the component was impacted into position. The knee was irrigated with Surgiphor Betadine solution. This was allowed to sit in the knee for 3 minutes and then it was irrigated out with saline. After the cement had finally cured, approximately 15min, the clamp was removed from the patella and the knee was taken through range of motion. The patella was tracking with a no-thumbs technique. The capsule was then reapproximated with a No. 1 Vicryl at multiple locations. The capsule was finally closed with a No. 2 Stratafix, barbed suture. Deep tissues were then reapproximated with 0 Vicryl and 2-0 Vicryl. The skin was closed with a running 3-0 Monocryl in a subcuticular fashion. Both incisions were then reinforced with skin glue. A Mepilex silver dressing was applied along with a [id number] BARRON wrap to both knees. A CryoCuff was applied. Liliam was transferred to the hospital bed without difficulty an suffering no apparent complication. Liliam has a good prognosis. Physical therapy will start today and without restrictions, weight-bearing as tolerated. Aspirin 81mg BID will be used for DVT prophylaxis.
--- NOTE | 2023-06-15 15:21 | W.ANESPOSTOP ---
Postoperative Evaluation Date, Time and Location Date Performed: 06/15/23 Time Performed: 15:22 Patient Location: PACU Vital Signs Most Recent Imported Vital Signs: Most Recent Vital Signs Temp Pulse Resp BP Pulse Ox 36.5 C 66 13 121/79 99 06/15/23 15:06 06/15/23 15:06 06/15/23 15:06 06/15/23 15:06 06/15/23 15:06 Pain Score Most Recent Pain Score: Most Recent Pain Score Pain Level 0 06/15/23 15:06 Assessment Mental Status: Awake (Alert & Oriented to Patient Baseline) Airway and Respiratory Function: Patent airway with normal (patient baseline) respiratory exam Cardiovascular Function: Hemodynamically Stable Hydration Status: Adequately Hydrated Nausea & Vomiting: No Nausea or Vomiting Pain: Pt. Denies Any Pain Peripheral Nerve Block: Regional nerve block not resolved at time of post operative discharge
--- NOTE | 2023-06-15 16:38 | IN_ITS ---
PT Notes Physical Therapy Inpatient Initial Evaluation Date: 06/15/2023 Referring Doctor: CÉSAR Mcpherson PT Orders: PT CONSULT: S/P Ortho Surgery Precautions: Fall. Standard. WBAT on B LE with AD. Patient Profile/Admitting Diagnosis: Liliam is a 58-year-old male patient with bilateral degenerative joint disease of knees and is S/P bilateral total knee arthroplasties on postoperative day 0. PMHX: All Active Problems Primary osteoarthritis of knees, bilateral (Acute) Social History/Home Situation: Patient lives with in a private home with 2 steps to enter with no rails. Independent with all aspects of ADLs prior to surgery. Equipment Owned/DME: Standard walker Subjective: Complained of bottom being numb and of pain in B knees of up to 100/10 but tried very hard to work with PT from edge of bed to bedside recliner. Denied headache, chest pain, and lightheadedness throughout session. Objective: General Observation: BARRON wraps to B LE. SCDs to B legs. IV through L UE. Mental Status: Alert and oriented as to person, place, time, and purpose. Able to pay attention, focus, and respond appropriately. Pain: As above Vital Signs: Closely monitored by nursirng staff ROM: Right Lower Extremity: Hip flexion allows up to 90 degrees. Hip abduction WFL. Knee flexion up to 30 degrees to 90 degrees. Knee extension -30 degrees. Ankle dorsiflexion WFL. Ankle plantarflexion WFL. Left Lower Extremity: Hip flexion allows up to 90 degrees. Hip abduction WFL. Knee flexion up to 30 degrees to 90 degrees. Knee extension -30 degrees. Ankle dorsiflexion to neutral only. Ankle plantarflexion WFL. Strength: Right Lower Extremity: Hip flexors 3-/5. Hip abductors 4-/5. Knee flexors 3-/5. Knee extensors 3-/5. Ankle dorsiflexors 3-/5. Ankle plantarflexors 4-/5. Left Lower Extremity: Hip flexors 3-/5. Hip abductors 4-/5. Knee flexors 3-/5. Knee extensors 3-/5. Ankle dorsiflexors 3-/5. Ankle plantarflexors 4-/5. Bed Mobility/Transfers: Minimal cueing provided for use of B hands as needed for support, movement sequence, AD management, and posture to reduce fall risk and minimize pain report Supine to sit stand by assist Sit to stand minimal assist Stand to sit minimal assist Bed to reclining chair minimal assist of 2 Gait: Instructed patient with level surface ambulation of about 10 steps requiring minimal asist of 2 for safety as B gluteal areas and low back extensors were numb and not fully activating. Able to safely extend with incrased push down on walker handles. Minimal assist provided for movement sequence and technique, limb adavancement, AD management and posture. Balance: Static Sitting: Normal Dynamic Sitting: Normal Static Standing: Fair Dynamic Standing: Poor Special Tests: Mobility Limitations Standardized Measure [facility]-PAC 6 clicks Basic Mobility Inpatient Short Form: Raw Score: 17 CMS Score: 50% deficit Informed Consent/Education: Patient was instructed in purpose of PT consult and plan of care. Agreeable to proceed with established PT POC to achieve personal goals. Assessment: Patient requires the use of a front wheeled walker and assistance of 1-2 persons for safety at time of evaluation. Persistent numbness and lateral multiple areas and lumbar area as well as high pain level limited patient's performance. Will plan on continuing training for 2 more sessions tomorrow before patient goes home per orthopod's order. Patient presents with clinical signs and symptoms consistent with current/admitting diagnoses that have resulted to mobility limitations, gait instability, generalized weakness, and overall ADL decline as demonstrated by the following impairment level findings: 1. Decreased strength to B hips and knee major muscle groups 2. Impaired sitting/standing balance 3. Impaired activity tolerance 4. Limitation of joint range of motion in B hips and knees 5. High pain level Impairments are contributing to the following functional limitations: 1. Decline in bed mobility skills 2. Decline in transfer skills 3. Difficulty with ambulation without assistive device and physical assistance 4. Increased completion time for mobility ADL performance 5. Increased risk for falls 6. Difficulty with managing steps alone safely Patient is assessed as a 16581 moderate complexity based on the following: History: 58-year-old female with past medical history as indicated above Examination: Demonstrable impairment in strength, balance, and mobility level with underlying impairments and functional limitations as exhibited above as well as deficit score of 50% utilizing the [facility] Mobility Inpatient Short Form Presentation: Evolving Decision Makin moderate complexity Goals: Goals X1 week 1. Supine-Sit independent 2. Sit-Supine independent 3. Sit-Stand independent 4. Stand-Sit independent with FWW 5. Bed-Chair independent with FWW 6. Chair-Bed independent with FWW 7. Independent gait on level surface with use of FWW for at least 300 feet without report of pain nor dyspnea 8. Independent stair negotiation while holding onto B rails for at least 3 steps without report of pain nor dyspnea 9. Independent with home exercise program 10. Good static and dynamic standing balance/tolerance Plan of Care/Treatment Plan: 1-2x/day, 7 days/week x 1 week. Plan of care has been reviewed with the SALES ASSOCIATE CASHIER providing the service under Physical Therapy direction. Initiate Physical Therapy intervention for pain management as needed, strengthening, bed mobility, transfers, gait, stairs, balance training, and use of assistive device. DISCHARGE RECOMMENDATIONS: [] Home with no services [] [] Home with services [specify] [X] Home with outpatient PT. home when medically cleared by orthopedic surgeon. Recommend outpatient PT services in order to optimize functional mobility outcomes and facilitate return to independent community ambulation without an assistive device. [] SNF for continued rehabilitation [] [] Snf Care [] [] SNF versus LTC based on ability to participate and progress [] TREATMENT CODE/TIME: 9716 2 x 20 minutes for 1 unit, 9753 0 x 12 minutes for 1 unit (16:38-17:10). Thank you for the opportunity to participate in the care of this patient. Clara Martinez PT, DPT, CLT [facility] [place], [place]
[2023-06-15] MEDS: ceFAZolin 1 GM/50 ML BAG IVPB (18:00)
[2023-06-15] MEDS: Normal Saline Flush 10 ML SYR (18:01)
[2023-06-15] MEDS: Celecoxib 200 MG CAP PO (19:44)
[2023-06-15] MEDS: Aspirin E.C. 81 MG TABEC PO (19:45)
--- NOTE | 2023-06-15 20:59 | RESPIRATORY ---
RT seen pt. for MARILYN diagnosis. Pt. has brought HU CPAP machine called [employer] has Auto CPAP Max. 18 and Min. Pressure 13 cm H2O. It is in good condition ready to go. pt. states he uses independently every night. DME is unknown per pt.
[2023-06-16 00:07] VITALS: RESP 18
[2023-06-16] MEDS: ceFAZolin 1 GM/50 ML BAG IVPB ×2 (01:37→10:59)
[2023-06-16 04:15] VITALS: BP 112/74; PULSE 61; RESP 20; TEMP 36.6; O2SAT 99
[2023-06-16 07:30] VITALS: BP 132/77; PULSE 65; RESP 18; TEMP 36.5; O2SAT 99
--- NOTE | 2023-06-16 07:58 | W.PM.DS.N ---
Date of service: 06/16/23 Time of Service: 07:30 DS: Diagnosis Discharge Diagnosis (1) Primary osteoarthritis of knees, bilateral: Status: Acute Discharge Plan Disposition Patient Disposition: Home Condition: Good Discharge Details Reason For Visit: Bilateral knee osteoarthritis Admit Date/Time: 06/15/23 08:21 Admit Provider: Thad Majano Attending Provider: Thad Majano Primary Care Provider: Sarah Pennington Hospital Course Hospital Course: Patient was admitted to the medical/surgical floor following the procedure. The surgery was tolerated well without any notable medical, surgical, or anesthetic complications. Mobilization began postoperatively. He was voiding spontaneously. Vitals were stable. Physical therapy worked with the patient and was cleared for discharge home. No acute medical issues. Pain was controlled on oral regimen. Home Meds and New Rx's Prescriptions: New acetaminophen 500 mg tablet 1,000 mg PO Q8H PRN (Reason: pain) Qty: 90 3RF aspirin 81 mg tablet,delayed release (DR/EC) 81 mg PO BID Qty: 60 0RF celecoxib 200 mg capsule 200 mg PO BID PRN (Reason: pain) Qty: 60 1RF pantoprazole 40 mg tablet,delayed release (DR/EC) 40 mg PO DAILY Qty: 30 0RF dexamethasone 4 mg tablet 4 mg PO DAILY Qty: 2 0RF Rx Instructions: Starting Post-Operative Day #1 (Day after surgery) oxycodone 5 mg tablet 5 mg PO Q4H PRNQty: 20 0RF gabapentin 300 mg capsule 300 mg PO QHS Qty: 14 0RF Continued irbesartan-hydrochlorothiazide 150-12.5 mg tablet 1 tab PO DAILY modafinil 100 mg tablet 100 mg PO DAILY Discontinued ibuprofen-acetaminophen [Advil Dual Action] 125-250 mg tablet 1 tab PO Q8H PRN ibuprofen 200 mg tablet 800 mg PO BID PRN Discharge Instructions Additional Instructions: Total Knee Discharge Instructions Activity: The most important activity is to walk and to work on gentle motion (both flexion and extension). You should try to take short walks a few times a day. It is important that when resting you work on keeping the knee straight. Avoid putting a pillow behind the knee as this will encourage flexion. Work on range of motion exercises as provided by Physical Therapy. - Start outpatient physical therapy within 2 weeks. - You should wear the QUEENIE hose on both legs for 2 weeks. You may remove these at night. You may also use any compression sock in place of the QUEENIE hose. - Utilize [employer] to review exercises, see videos on exercises and obtain basic information pertaining to your surgery and your recovery. Dressing: Remove the Gaurav wrap by 2 days after your surgery and put on the QUEENIE stocking given to you from the hospital. Keep the surgical dressing (underneath the GAURAV wrap) in place for at least one week. After the first week it may be removed and replaced with light gauze and tape or nothing. The wound and dressing may get wet after 3 days but avoid soaking the dressing or otherwise it will need to be changed. Many people prefer covering the dressing with cling wrap (saran wrap) to minimize it from getting soaked. If it gets wet, just pat dry. If it starts to peel off then it will need to be changed. Medications: - You should take Tylenol and anti-inflammatory Celebrex as your primary pain control medications. If the Celebrex is too expensive or not covered, please call the office for another alternative (Advil/Ibuprofen or Naproxen/Aleve) - You have been prescribed a stronger pain medication Oxycodone for breakthrough pain, take as needed as prescribed. - You have also been prescribed a stomach acid reduction agent Pantoprozole to help reduce stomach acid and reflux. - You have been prescribed Gabapentin to take at night for restlessness and nerve pain. - You will be taking Aspirin 81mg twice a day for DVT prevention unless instructed otherwise. - You have also been prescribed Decadron to take to control post-operative nausea and pain. You will start this tomorrow. - If you have constipation you should take Colace or Miralax (both [id number]). It takes most people 3-4 days to have a bowel movement. Follow-up: 2 weeks If you have any acute concerns or questions, please do not hesitate to contact the office at [phone]. You may contact Dr. Majano with any questions after hours through the hospital at [phone] or on his cell phone at [phone]. Stand Alone Forms: Zafar Flower ([facility]) Referrals: Thad Majano MD [ [facility] STAFF PHYSICIAN] - 06/30/23 10:15 am Activity:: Activity as Tolerated Equipment/Supplies:: Walker Diet:: As Tolerated Discharge Orders Discharge Orders: Discharge Order (Routine); Ordered 06/16/23 Ordered By: Thad Majano DS: Summary Time Spent with Patient providing and/or coordinating discharge services: Less than 30 minutes Status at Discharge Functional status at discharge: uses cane/walker Overall status at discharge: patient is progressing back to baseline Mental Status: mental status grossly normal Speech and Movement: speech and movement normal Mood: congruent mood Affect: normal affect Quality:SDOH Health Related Social Needs: No Data to Display Exam Narrative Exam Narrative: Sitting up in the bed. No acute distress. Alert and orient x 3. Evaluation of both legs shows clean dry and intact dressings. He is able to actively extend and flex both knees although he does so some more hesitation on the right side. Intact ankle dorsiflexion, plantarflexion, great toe extension, great toe flexion on both sides. Sensation intact light touch over the deep and superficial peroneal nerve and tibial nerve. Psych Mental Status: mental status grossly normal Speech and Movement: speech and movement normal Mood: congruent mood Affect: normal affect DS: Data Vitals/I&O Vitals and I&O: Vital Signs Temperature 36.5 C 06/15/23 15:21 Temperature Source Skin 06/15/23 11:13 Pulse 67 06/15/23 15:21 Pulse Rhythm Regular 06/15/23 08:28 Respiratory Rate 23 06/15/23 15:21 Respiratory Depth Normal 06/15/23 08:28 Blood Pressure 122/82 06/15/23 15:21 Blood Pressure Mean 102 06/15/23 11:13 Blood Pressure Position Sitting 06/15/23 11:13 Pulse Oximetry 99 06/15/23 15:21 Respiratory End-tidal CO2 29 06/15/23 15:21 Oxygen Delivery Method Room Air 06/15/23 15:21 Oxygen Flow Rate 0 06/15/23 11:13 Pain Level 4 06/15/23 15:21 Comment 11:19 LEFT leg block completed by Adrianne BURK with Vicky Espinoza CRNA assisting. No complications. 11:20. Post op VS taken and documented above. pt denies tinnitus, metallic taste. Pt communicating, noticeably slurring words. Pt made comfortable. Maritza Sultana CRNA, Lisa Quinones RN left the room. Pt cardiac leads connected to main desktop operator. Waiting for pt to be transferred to OR. 06/15/23 11:13 Intake & Output 06/14/23 06/15/23 06/15/23 23:59 11:59 23:59 Intake Total 900 / 1270 370 / 1270 Output Total 400 / 400 Balance 900 / 870 -30 / 870 Weight 119 kg Intake: IV 900 / 1270 370 / 1270 Output: Estimated Blood Loss 400 / 400 Other: Urine Color Yellow Urine Appearance Clear Urine Odor None Emesis Description None Voiding Methods Toilet PFSH All Active Problems Primary osteoarthritis of knees, bilateral (Acute) Medical History MARILYN (obstructive sleep apnea) Essential hypertension Social History Smoking/Tobacco Use Status: Never Smoking risk assessment performed?: Yes Alcohol Intake: current Alcohol Intake frequency: a few times a week Drug use: Never Substance use type: does not use Details: Last drink was 4 shots of bourbon around 1900 on 06/13 Housing: house Do you feel safe at home: Yes Do you feel safe in your relationship?: Yes Time Spent with Patient Time Spent with Patient: <45 minutes Time was spent: preparing to see the patient(eg.review tests), indepentently interpreting results, counseling the patient and care coordination
[2023-06-16] MEDS: Aspirin E.C. 81 MG TABEC PO (08:09)
[2023-06-16] MEDS: Acetaminophen 500 MG TAB 1000 MG PO (08:09)
[2023-06-16] MEDS: hydroCHLOROthiazide 12.5 MG TAB PO (08:10)
[2023-06-16] MEDS: Celecoxib 200 MG CAP PO (08:10)
[2023-06-16] MEDS: Pantoprazole 40 MG TABCR PO (08:13)
[2023-06-16] MEDS: Tranexamic Acid 650 MG TAB 1300 MG PO (08:28)
[2023-06-16] MEDS: oxyCODONE 5 MG TAB PO ×2 (08:29→11:57)
[2023-06-16] MEDS: Dexamethasone 4 MG TAB PO (08:30)
--- NOTE | 2023-06-16 09:23 | PTTR_ITS ---
PT Notes Visit Reasons: OA B/L Knee Physical Therapy Inpatient Treatment Note Date: 06/16/2023 Precautions: Fall. Standard. WBAT on B LE with AD. Subjective: Numbness in bottom and lower lumbar areas resolved. Pain in B knees at 5-6/10 with walking. Denied headache, chest pain, and lightheadedness throughout session. Objective: General Observation: BARRON wraps to B LE. [place] to B knees. IV through L UE. Mental Status: Alert and oriented as to person, place, time, and purpose. Able to pay attention, focus, and respond appropriately. Pain: As above Vital Signs: Closely monitored by nursing staff Bed Mobility/Transfers: Minimal cueing provided for use of B hands as needed for support, movement seq uence, AD management, and posture to reduce fall risk and minimize pain report Supine to sit stand by assist Sit to stand stand by assist Stand to sit stand by assist Bed to reclining chair stand by assist Gait: Instructed patient with level surface ambulation of about 150 feet + 150 feet requiring stand by assist. Minimal assist provided for movement sequence and technique, limb advancement, AD management and posture. Reported 5-6/10 pain in B knees. R DF decreased but patient was able to correct partially when cued. Trunk flexed minimally but able to achieve neutral position on command with report of achiness in B quads. Balance: Static Sitting: Normal Dynamic Sitting: Normal Static Standing: Fair Dynamic Standing: Poor Assessment: B TKA on POD 1. R knee flexion 30 degrees to 100 degrees, R knee extension -30 degrees. L knee flexion 30 degrees to 105 degrees, L knee extension -30 degrees. Numbness to B gluteal and lower lumbar areas resolved. Pain level diminishing. Activity tolerance very much improved. Patient requires the use of FWW for all mobility ADl performance to maximize independence and reduce fall risk. Has good mastery of HEP, copy of which has also been provided to patient and his . Mild decrease in DF noted initially during the walk that somehow partially resolved towards the end of last trip back to his room from the therapy gym. DISCHARGE RECOMMENDATIONS: [] Home with no services [] [] Home with services [specify] [X] Home with outpatient PT. home when medically cleared by orthopedic surgeon. Recommend outpatient PT services in order to optimize functional mobility outcomes and facilitate return to independent community ambulation without an assistive device. [] SNF for continued rehabilitation [] [] Financial Services Associate Care [] [] SNF versus LTC based on ability to participate and progress [] TREATMENT CODE/TIME: 9716 2 x 20 minutes for 1 unit, 9753 0 x 15 minutes for 1 unit (9:23-9:57).
[2023-06-16] MEDS: Normal Saline Flush 10 ML SYR IVP (10:59)
--- NOTE | 2023-06-16 11:39 | CHAPLAIN ---
Liliam was up in the recliner when I visited. When I introduced myself, he said he isn't dying. I explained that I visit everyone. He said he's doing well and is in touch with family. He did not seem interested in further conversation.
[2023-06-16 11:51] VITALS: BP 122/56; PULSE 62; RESP 18; TEMP 35.9; O2SAT 100
--- NOTE | 2023-06-16 14:23 | PT.INTREAT ---
PT Notes Visit Reasons: OA B/L Knee Inpatient Physical Therapy Treatment Note [facility] Date: 06/16/23 SUBJECTIVE: Liliam reports that he is ready to go home. OBJECTIVE: []? PAIN: B knees, R>L VITALS: ?monitored by nsg. Therapeutic Activities (10471o0): Direct one-on-one instruction in dynamic activities to improve functional performance. ? BED MOBILITY/TRANSFERS? Sit-stand: SBA ? Stand-sit: SBA ? Provided skilled cues and instruction on performance and technique throughout. GAIT? Assistive Device:FWW ? Weight bearing: AT Assist: CGA/SBA ? Distance:? 250' ? Deviation: slow jolynn. ? Reviewed HEP packet. ? ASSESSMENT:? tolerated session well. Reminders to heel strike and toe off during ambulation. He was able to make corrections with verbal cues. PLAN: d/c home with TREATMENT CODE/TIME: 25 min. [id number]
== END 2023-06-16 13:45 | disposition home or self-care (01) ==
LOC: MS 06-16 08:52 → PDS 06-16 08:53 → MS 06-16 08:53
PROVIDERS: Admitting Provider Student in an Organized Health Care Education/Training Program; PCP Nurse Practitioner Family; Visit Provider Student in an Organized Health Care Education/Training Program
PROC: 0SRC0JZ Replacement of Right Knee Joint with Synthetic Substitute, Open Approach (ICD-10-PCS; CPT 27447; principal; 2023-06-15 12:00)
DX: M17.0 Bilateral primary osteoarthritis of knee (principal); I10 Essential (primary) hypertension; G47.33 Obstructive sleep apnea (adult) (pediatric); Z79.899 Other long term (current) drug therapy
CPT/HCPCS: 27447; 76942; 97162; 97530; C1776; G0378; J0665; J0690; J1100; J2001; J2003; J2250; J2401; J2405; J2704; J8540

== ENCOUNTER 2023-06-30 11:56 | Outpatient (CLI) | payer BC, SELFPAY ==
--- NOTE | 2023-06-30 10:00 | DI.RAD_ITS ---
Exam(s) XR KNEE LT 1V XR STANDING ALIGNMENT XR KNEE RT 1V EXAM: XR STANDING ALIGNMENT CLINICAL HISTORY: 1st post op S/P BILAT TKAs. TECHNIQUE: 2D digital imaging was performed. Standing AP views were performed from the pelvis throu gh the ankles. Lateral views of both knees COMPARISON: CR XR STANDING ALIGNMENT from 05/09/2023 CR XR KNEE LT 1V from 06/30/2023 CR XR KNEE RT 1V from 06/30/2023 FINDINGS: BONES: No acute fracture is present. No bony destructive lesion is seen. Leg length discrepancy: No significant leg length discrepancy. JOINTS: Knees: Bilateral total knee prostheses have been placed since the previous exam. The alignme nt is satisfactory. No abnormal surrounding bony lucencies. The ankle joints are unremarkable. The hip joints are unremarkable. SOFT TISSUE: Chronic calcifications in the lower legs bilaterally. IMPRESSION: Bilateral knee prostheses. No significant leg length discrepancy. DATA REPOSITORY: RADIATION DOSE DELIVERED:
== END 2023-06-30 11:57 | disposition home or self-care (01) ==
LOC: DIORS 11:56
PROVIDERS: PCP Nurse Practitioner Family; Visit Provider Student in an Organized Health Care Education/Training Program
DX: Z96.653 Presence of artificial knee joint, bilateral (principal); Z47.1 Aftercare following joint replacement surgery
CPT/HCPCS: 73560; 77073

== ENCOUNTER 2023-08-30 11:30 | Outpatient (REF) | payer BC, SELFPAY ==
[2023-08-30 14:37] LABS: ALT 45 U/L (16-63); AST 26 U/L (15-37); Albumin 4.1 g/dL (3.4-5.0); Alkaline Phosphatase 87 U/L (46-116); Anion Gap 6.6 mmol/L (3-11); BUN 18 mg/dL (7-18); Bilirubin, Total 0.6 mg/dL (0.2-1.0); CO2 26.4 mmol/L (21.0-32.0); CREATININE 0.8 mg/dL (0.70-1.30); Calcium 9.8 mg/dL (8.5-10.1); Calculated LDL 131 mg/dL (<100); Chloride 104 mmol/L (98-107); Cholesterol 220 mg/dL (<200); Estimated GFR 101.95 (mL/min/1.73m2); Glucose 106 mg/dL (74-106); HDL Cholesterol 67 mg/dL (40-60); Potassium 3.9 mmol/L (3.5-5.1); Sodium 137 mmol/L (136-145); Total Protein 7.7 g/dL (6.4-8.2); Triglyceride 111 mg/dL (<150)
== END 2023-08-30 11:31 | disposition home or self-care (01) ==
LOC: NCHCN 11:30
PROVIDERS: PCP Nurse Practitioner Family; Visit Provider Nurse Practitioner Family
DX: I10 Essential (primary) hypertension (principal); E78.5 Hyperlipidemia, unspecified
CPT/HCPCS: 80053; 80061

== ENCOUNTER 2023-09-26 15:15 | Outpatient (REF) | payer BC, SELFPAY ==
--- OUTSIDE RECORDS SUMMARY | 2023-09-26 15:17 | XMS_ITS ---
Author Name Unknown Address [address], [place] [phone] Phone Organization Unknown Address [address], [place] [phone] Phone Care Team Providers Care Vocational Auto Body Instructor Name Role Phone OLIVIA Terrazas Attending Unavailable Social History Type Status Start Date End Date Code Code Syst em Smoking History Never smoker (Never Smoked) [id number] SNOMED CT Sex Male Hospital Discharge Instructions Should you have any questions prior to discharge, please contact a member of your healthcare team. If you have left the hospital and have any questions, please contact your primary care physician. Reason For Referral No Data Found Plan of Treatment No Data Found Encounters Encounter Diagnosis Start Date Code Code Sys tem Idiopathic osteoarthritis 08/25/2021 [id number] [facility] Personal Care Team Section Performer Name Performer Role Active Date Inactive Da te
--- OUTSIDE RECORDS SUMMARY | 2023-09-26 15:17 | XMS_ITS ---
Author Name Unknown Address [address], [place] [phone] Phone Organization Unknown Address [address], [place] [phone] Phone Care Team Providers Care International Student Counselor Name Role Phone ANTWAN THURSTON Attending Unavailable Social History Type Status Start Date End Date Code Code Syst em Smoking History Never smoker (Never Smoked) [id number] SNOMED CT Sex Male Hospital Discharge Instructions Should you have any questions prior to discharge, please contact a member of your healthcare team. If you have left the hospital and have any questions, please contact your primary care physician. Reason For Referral No Data Found Plan of Treatment No Data Found Encounters Encounter Diagnosis Start Date Code Code Sys tem Idiopathic osteoarthritis 09/03/2021 [id number] SN [facility] Personal Care Team Section Performer Name Performer Role Active Date Inactive Da britney
--- OUTSIDE RECORDS SUMMARY | 2023-09-26 15:17 | XMS_ITS ---
Author Name Unknown Address [address], [place] [phone] Phone Organization Unknown Address [address], [place] [phone] Phone Care Team Providers Care Property Assessment Monitor Name Role Phone ANTWAN THURSTON Attending Unavailable Social History Type Status Start Date End Date Code Code Syst em Smoking History Never smoker (Never Smoked) [id number] SNOMED CT Sex Male Hospital Discharge Instructions Should you have any questions prior to discharge, please contact a member of your healthcare team. If you have left the hospital and have any questions, please contact your primary care physician. Reason For Referral No Data Found Plan of Treatment No Data Found Encounters Encounter Diagnosis Start Date Code Code Sys tem Idiopathic osteoarthritis 09/11/2021 [id number] [facility] Personal Care Team Section Performer Name Performer Role Active Date Inactive Da britney
--- OUTSIDE RECORDS SUMMARY | 2023-09-26 15:18 | XMS_ITS ---
Author Name Unknown Address [address], [place] [phone] Phone Organization Unknown Address [address] [place] [phone] Phone Care Team Providers Care Licensed Chemical Spray Technician Name Role Phone ASHTYN Cunningham Attending Unavailable RENEE Stephenson Primary Unavailable Results XR KNEE BILAT 4V* - Complete d: 07/14/2022 11:07 LOINC: [An error prevented this con tent from loading. This incident has been logged.] Social History Type Status Start Date End Date Code Code Syst em Smoking History Never smoker (Never Smoked) [id number] SNOMED CT Sex Male Hospital Discharge Instructions Should you have any questions prior to discharge, please contact a member of your healthcare team. If you have left the hospital and have any questions, please contact your primary care physician. Reason For Referral No Data Found Plan of Treatment No Data Found Encounters Encounter Diagnosis Start Date Code Code Sys tem Idiopathic osteoarthritis 07/14/2022 [id number] SN [facility]-CT Personal Care Team Section Performer Name Performer Role Active Date Inactive Da te
--- OUTSIDE RECORDS SUMMARY | 2023-09-26 15:18 | XMS_ITS ---
Author Name Unknown Address [address], [place] [phone] Phone Organization Unknown Address [address] [place] [phone] Phone Care Team Providers Care Electronics Technology Department Chair Name Role Phone OLIVIA Terrazas Attending Unavailable RENEE Stephenson Primary Unavailable Results XR ANKLE LT 3V* - Completed: 08/02/2022 11:58 LOINC: [An error prevented this con tent from loading. This incident has been logged.] Social History Type Status Start Date End Date Code Code Syst em Smoking History Never smoker (Never Smoked) [id number] SNOMED CT Sex Male Hospital Discharge Instructions Should you have any questions prior to discharge, please contact a member of your healthcare team. If you have left the hospital and have any questions, please contact your primary care physician. Reason For Referral No Data Found Plan of Treatment No Data Found Encounters Encounter Diagnosis Start Date Code Code Sys tem Idiopathic osteoarthritis 08/02/2022 [id number] SN OMED-CT Personal Care Team Section Performer Name Performer Role Active Date Inactive Da te
--- OUTSIDE RECORDS SUMMARY | 2023-09-26 15:18 | XMS_ITS ---
Author Name Unknown Address [address] [place], [place] [phone] Phone Organization Unknown Address [address] [place] [phone] Phone Care Team Providers Care Idea Man Name Role Phone ASHTYN Cunningham Attending Unavailable RENEE Stephenson Primary Unavailable Social History Type Status Start Date End Date Code Code Syst em Smoking History Never smoker (Never Smoked) [id number] SNOMED CT Sex Male Hospital Discharge Instructions Should you have any questions prior to discharge, please contact a member of your healthcare team. If you have left the hospital and have any questions, please contact your primary care physician. Reason For Referral No Data Found Plan of Treatment No Data Found Encounters Encounter Diagnosis Start Date Code Code Sys tem Idiopathic osteoarthritis 07/21/2022 [id number] SN OMED-CT Personal Care Team Section Performer Name Performer Role Active Date Inactive Da te
--- OUTSIDE RECORDS SUMMARY | 2023-09-26 15:19 | XMS_ITS ---
Author Name Unknown Address [address], [place] [phone] Phone Organization Unknown Address [address], [place] [phone] Phone Care Team Providers Care Staff Counsel Name Role Phone BHUMIKA Lee Attending Unavailable RENEE Stephenson Primary Unavailable Social History Type Status Start Date End Date Code Code Syst em Smoking History Never smoker (Never Smoked) [id number] SNOMED CT Sex Male Hospital Discharge Instructions Should you have any questions prior to discharge, please contact a member of your healthcare team. If you have left the hospital and have any questions, please contact your primary care physician. Reason For Referral No Data Found Plan of Treatment No Data Found Encounters Encounter Diagnosis Start Date Code Code Sys tem Idiopathic osteoarthritis 03/01/2023 [id number] SN OMED-CT Personal Care Team Section Performer Name Performer Role Active Date Inactive Da te
[2023-09-26 22:03] LABS: HCT 45.9 % (40.0-50.0); HGB 15.3 g/dL (13.5-17.5); MCH 28.3 pg (27.0-33.0); MCHC 33.3 % (32.0-36.0); MCV 85 fL (80-95); MPV 9.6 fL (8.0-11.0); Platelet Count 250 10^3/uL (130-400); RBC 5.41 10^6/uL (4.36-5.78); RDW 13.7 % (11.8-14.1); RDW-SD 42.1 fL; WBC 4.62 10^3/uL (4.4-10.8)
[2023-09-28 11:51] LABS: Lyme Ab w Rflx to Lyme Confirm Negative (Negative)
== END 2023-09-26 15:16 | disposition home or self-care (01) ==
LOC: NCHCN 15:15
PROVIDERS: PCP Nurse Practitioner Family; Visit Provider Nurse Practitioner Family
DX: R53.83 Other fatigue (principal); T14.8XXA Other injury of unspecified body region, initial encounter; W57.XXXA Bitten or stung by nonvenomous insect and other nonvenomous arthropods, initial encounter; Z01.84 Encounter for antibody response examination
CPT/HCPCS: 85027; 86618

== ENCOUNTER 2023-12-19 13:54 | Outpatient (REF) | payer BC, SELFPAY ==
--- OUTSIDE RECORDS SUMMARY | 2023-12-19 13:58 | XMS_ITS ---
Author Organization Unknown Address [address] [place] [phone] Phone Care Team Providers Care Assistant Accounting Manager Name Role Phone ANTWAN THURSTON Attending Unavailable Social History Type Status Start Date End Date Code Code Syst em Smoking History Never smoker (Never Smoked) [id number] SNOMED CT Sex Male Hospital Discharge Instructions Should you have any questions prior to discharge, please contact a member of your healthcare team. If you have left the hospital and have any questions, please contact your primary care physician. Reason For Referral No Data Found Plan of Treatment No Data Found Encounters Encounter Diagnosis Start Date Code Code Sys tem Idiopathic osteoarthritis 09/11/2021 [id number] SN OMED-CT Personal Care Team Section Performer Name Performer Role Active Date Inactive Da te
--- OUTSIDE RECORDS SUMMARY | 2023-12-19 13:58 | XMS_ITS ---
Author Organization Unknown Address [address] [place] [phone] Phone Care Team Providers Care Labor Relations Teacher Name Role Phone ANTWAN THURSTON Attending Unavailable Social History Type Status Start Date End Date Code Code Syst em Smoking History Never smoker (Never Smoked) [id number] SNOMED CT Sex Male Hospital Discharge Instructions Should you have any questions prior to discharge, please contact a member of your healthcare team. If you have left the hospital and have any questions, please contact your primary care physician. Reason For Referral No Data Found Plan of Treatment No Data Found Encounters Encounter Diagnosis Start Date Code Code Sys tem Idiopathic osteoarthritis 09/03/2021 [id number] SN OMED-CT Personal Care Team Section Performer Name Performer Role Active Date Inactive Da te
--- OUTSIDE RECORDS SUMMARY | 2023-12-19 13:59 | XMS_ITS ---
Author Organization Unknown Address [address] [place] [phone] Phone Care Team Providers Care System Safety Engineer Name Role Phone OLIVIA Terrazas Attending Unavailable Social History Type Status Start Date End Date Code Code Syst em Smoking History Never smoker (Never Smoked) [id number] SNOMED CT Sex Male Hospital Discharge Instructions Should you have any questions prior to discharge, please contact a member of your healthcare team. If you have left the hospital and have any questions, please contact your primary care physician. Reason For Referral No Data Found Plan of Treatment No Data Found Encounters Encounter Diagnosis Start Date Code Code Sys tem Idiopathic osteoarthritis 08/25/2021 [id number] SN OMED-CT Personal Care Team Section Performer Name Performer Role Active Date Inactive Da te
--- OUTSIDE RECORDS SUMMARY | 2023-12-19 13:59 | XMS_ITS ---
Author Organization Unknown Address [address] [place] [phone] Phone Care Team Providers Care Shake Feeder Name Role Phone ASHTYN Cunningham Attending Unavailable RENEE Stephenson Primary Unavailable Results XR KNEE BILAT 4V* - Complete d: 07/14/2022 11:07 LOINC: [facility] [place], [place] [address] PACS WATER RESOURCE MANAGER REPORT Patient Name: KWADWO ARVIZU MRN: Sex: : Age: [id number] M [id number] Account: Accession: Admit: StayType: [id number] 07/14/2022 CLINIC Ordered: Order ID: Submitted: Ordering Provider: 07/14/2022 10:05 [id number] MANUELA VANEGAS Completed: Technologist: Resulted: 07/14/2022 11:07 LISAK 07/14/2022 18:40 Study Description: XR KNEE BILAT 4V Study Reason: PRIMARY OA BOTH KNEES TECHNIQUE: 2D digital imaging was performed. COMPARISON: 2019 FINDINGS: NUMBER OF VIEWS: 6 There is significant degenerative changes to both knees with joint space narrowing and marginal osteophytes of the medial compartment. Amount of narrowing on the left side medial compartment is more than on the right. Lateral compartments both knees exhibit normal height Moderate degenerative changes in the patellofemoral compartments. IMPRESSION: Degenerative changes Report Digitally Signed by Sebastián Beasley on 07/14/2022 06:40 PM EDT Social History Type Status Start Date End Date Code Code Syst em Smoking History Never smoker (Never Smoked) [id number] SNOMED CT Sex Male Hospital Discharge Instructions Should you have any questions prior to discharge, please contact a member of your healthcare team. If you have left the hospital and have any questions, please contact your primary care physician. Reason For Referral No Data Found Plan of Treatment No Data Found Encounters Encounter Diagnosis Start Date Code Code Sys tem Idiopathic osteoarthritis 07/14/2022 [id number] SN OMED-CT Personal Care Team Section Performer Name Performer Role Active Date Inactive Da te
--- OUTSIDE RECORDS SUMMARY | 2023-12-19 13:59 | XMS_ITS ---
Author Organization Unknown Address [address] [place] [phone] Phone Care Team Providers Care Railroad Purchasing Agent Name Role Phone ASHTYN Cunningham Attending Unavailable RENEE Stephenson Primary Unavailable Social History Type Status Start Date End Date Code Code Syst em Smoking History Never smoker (Never Smoked) 226704891 SNOMED CT Sex Male Hospital Discharge Instructions Should you have any questions prior to discharge, please contact a member of your healthcare team. If you have left the hospital and have any questions, please contact your primary care physician. Reason For Referral No Data Found Plan of Treatment No Data Found Encounters Encounter Diagnosis Start Date Code Code Sys tem Idiopathic osteoarthritis 07/21/2022 [id number] SN OMED-CT Personal Care Team Section Performer Name Performer Role Active Date Inactive Da te
--- NOTE | 2023-12-19 14:00 | SKI_PTH ---
PATIENT: Liliam Gee LOC: [facility]#:[id number] AGE/SX: 58/M ROOM: RE12/19/[address]: Kacey Elizondo : 1965 BED: DIS: 12/19/2023 SPEC #: [id number] RECD: 12/19/23 18:17 STATUS: KARENA REKhao #: [id number] NISHA: 12/19/23 14:[address]: Kacey Elizondo DEPT: Surgical Specimen RECD BY: Lizzette Jerry ENTERED: 12/19/23 18:17 SP TYPE: IRAM JACKSON DR: Sarah Pennington Tissues: 1 - SKIN CYST/TAG/DEBRIDEMENT Procedures: GROSS AND MICRO LEVEL 3 Comments: [id number]
--- OUTSIDE RECORDS SUMMARY | 2023-12-19 14:00 | XMS_ITS | Encounter Summary ---
Author Organization [facility] Address [address] [place] [address] Care Team Providers Care Analytical Strategist Name Role Phone Unavailable Primary Care Provider Unavailabl e Encounter Details Date Type Department Care Team (Latest Contact Info) Description 05/30/2014 11:13 EST - 05/30/2014 23:[address] [facility] [address] [place] [address] Unknown, Provider, Discharge Disposition: Home or Self Care Social History Tobacco Use Types Packs/Day Years Used Date Smoking Tobacco: Never Assessed Sex and Gender Information Value Date Recorded Sex Assigned at Not on file Gender Identity Not on file Sexual Orientation Not on file documented as of this encounter Discharge Disposition Disposition Code Departure Means Destination Home or Self Prison documented in this encounter Plan of Treatment Not on file documented as of this encounter Visit Diagnoses Not on filedocumented in this encounter
--- OUTSIDE RECORDS SUMMARY | 2023-12-19 14:00 | XMS_ITS ---
Author Organization Unknown Address [address] [place] [phone] Phone Care Team Providers Care Director Medicaid Name Role Phone BHUMIKA Lee Attending Unavailable RENEE Stephenson Primary Unavailable Social History Type Status Start Date End Date Code Code Syst em Smoking History Never smoker (Never Smoked) [id number] SNOMED CT Sex Male Hospital Discharge Instructions Should you have any questions prior to discharge, please contact a member of your healthcare team. If you have left the hospital and have any questions, please contact your primary care physician. Reason For Referral No Data Found Plan of Treatment No Data Found Encounters Encounter Diagnosis Start Date Code Code Sys tem Idiopathic osteoarthritis 03/01/2023 [id number] SN OMED-CT Personal Care Team Section Performer Name Performer Role Active Date Inactive Da te
--- OUTSIDE RECORDS SUMMARY | 2023-12-19 14:00 | XMS_ITS | Encounter Summary ---
Author Organization [facility] Address [address] [place] [address] Care Team Providers Care Tissue Specialist Name Role Phone Unknown, Provider Primary Care Provider [phone] Encounter Details Date Type Department Care Team (Late st Contact Info) Description 03/13/2018 Historical Results Only [facility] Radiology Results [address] [place] [address] Lilly Mandujano PA-C [address] [place] [phone] Social History Tobacco Use Types Packs/Day Years Used Date Smoking Tobacco: Never Assessed Sex and Gender Information Value Date Recorded Sex Assigned at Not on file Gender Identity Not on file Sexual Orientation Not on file documented as of this encounter Plan of Treatment Not on file documented as of this encounter Procedures Procedure Name Priority Date/Time Associated Diagnosis Comments XR KNEE LEFT 3 VIEWS 03/13/2018 16:00 EST documented in this encounter Results * XR KNEE LEFT 3 VIEWS (03/13/2018 16:00 EST) Anatomical Region Laterality Modality Lower Extremities Left Other 03/13/2018 16:0 0 EST Narrative 03/13/2018 16:04 EST ? EXAM: RADIOLOGY/KNEE LT 3 VIEW ?EX. D/ (1229) ? CLINICAL INFORMATION: ? M25.562, PAIN IN LEFT KNEE. ROUTINE VIEWS. ? KNEE LT 3 VIEW ? Signs and Symptoms/Comments: ??M25.562, PAIN IN LEFT KNEE. ROUTINE ? VIEWS. ? Comparison: None ? Findings: ? Left Knee: Upright AP, lateral and sunrise views were performed. ? There is a subtle lobulated calcified lesion projecting along the ? lateral aspect of the distal femoral metaphysis, measuring ? approximately 3 cm in craniocaudal dimension. This is of uncertain ? significance, with the differential including sequela of prior ? trauma, a calcified mass, or other considerations. Contrast-enhanced ? MR is recommended for further evaluation. ? No acute fracture or malalignment is identified. Mild ? tricompartmental osteoarthrosis is most advanced in the ? patellofemoral and medial tibiofemoral compartments. A small ? suprapatellar joint effusion is present. Scattered lucent centered ? calcifications projecting over the soft tissues of the calf are ? likely phleboliths. ? IMPRESSION: ? 1. ??Indeterminate 3 cm calcified lesion in the soft tissues along the ? lateral aspect of the distal femoral metaphysis. Contrast-enhanced MR ? recommended for further evaluation. ? 2. ??Mild tricompartmental osteoarthrosis. ? 3. ??Small joint effusion. ? This report has been flagged for a noncritical result requiring ? follow-up on the [employer] PACS findings application, to be tracked by ? the [facility] tracking system. ? REPORT SIGNED IN OTHER VENDOR SYSTEM 03/13/2018 ?Reported By: Rob Uriostegui MD ? CC: ? Transcribed Date/Time: 03/13/2018 (1264) ? Rental Representative: ? Printed Date/Time: 10/01/2018 (1005) ? PAGE 1 ? Signed Report ? Procedure Note Rob Uriostegui MD - 02/15/2019 EXAM: RADIOLOGY/KNEE LT 3 VIEW EX. D/ (1229) CLINICAL INFORMATION: M25.562, PAIN IN LEFT KNEE. ROUTINE VIEWS. KNEE LT 3 VIEW Signs and Symptoms/Comments: M25.562, PAIN IN LEFT KNEE. ROUTINE VIEWS. Comparison: None Findings: Left Knee: Upright AP, lateral and sunrise views were performed. There is a subtle lobulated calcified lesion projecting along the lateral aspect of the distal femoral metaphysis, measuring approximately 3 cm in craniocaudal dimension. This is of uncertain significance, with the differential including sequela of prior trauma, a calcified mass, or other considerations.Contrast-enhanced MR is recommended for further evaluation. No acute fracture or malalignment is identified. Mild tricompartmental osteoarthrosis is most advanced in the patellofemoral and medial tibiofemoral compartments. A small suprapatellar joint effusion is present. Scattered lucent centered calcifications projecting over the soft tissues of the calf are likely phleboliths. IMPRESSION: 1. Indeterminate 3 cm calcified lesion in the soft tissues alongthe lateral aspect of the distal femoral metaphysis. Contrast-enhancedMR recommended for further evaluation. 2. Mild tricompartmental osteoarthrosis. 3. Small joint effusion. This report has been flagged for a noncritical result requiring follow-up on the [employer] PACS findings application, to be tracked by the [facility] tracking system. REPORT SIGNED IN OTHER VENDOR SYSTEM 03/13/2018 Reported By: Rob Uriostegui MD CC: Transcribed Date/Time: 03/13/2018 (9509) Rental Representative: Printed Date/Time: 10/01/2018 (2682) PAGE 1 Signed Report Lilly Mandujano PA-C [facility] DIAGNOSTIC IMAGING ORDERABLES documented in this encounter Visit Diagnoses Not on filedocumented in this encounter Care Teams Tissue Specialist Relationship Specialty Start Date End Date Unknown, Provider, PCP - General 06/06/14 documented as of this encounter
--- OUTSIDE RECORDS SUMMARY | 2023-12-19 14:00 | XMS_ITS | Encounter Summary ---
Author Organization [facility] Address [address] [place] [address] Care Team Providers Care Construction Equipment Overhauler Name Role Phone Unknown, Provider Primary Care Provider Encounter Details Date Type Department Care Team (Late st Contact Info) Description 05/30/2014 Historical Results Only [facility] Radiology Results [address] [place] [address] Ez Sherman Jr., PA Social History Tobacco Use Types Packs/Day Years Used Date Smoking Tobacco: Never Assessed Sex and Gender Information Value Date Recorded Sex Assigned at Not on file Gender Identity Not on file Sexual Orientation Not on file documented as of this encounter Plan of Treatment Not on file documented as of this encounter Procedures Procedure Name Priority Date/Time Associated Diagnosis Comments XR WRIST LEFT 3 OR MORE VIEWS 05/30/2014 11:21 EST documented in this encounter Results * XR WRIST LEFT 3 OR MORE VIEWS (05/30/2014 11:21 EST) Anatomical Region Laterality Modality Upper Extremities Left Other 05/30/2014 11:2 1 EST Narrative 05/30/2014 11:28 EST ? EXAM: RADIOLOGY [facility]/EXP CARE XR ??EX. D/ (1111) ? CLINICAL INFORMATION: ? PAIN AND SWELLING S/P TRAUMA. DONE AT [facility] ? EXP CARE XR WRST LT MIN 3V ? Signs and Symptoms/Comments: ??Pain and swelling status post trauma. ? Comparison: None ? Findings: ? 4 views of the left wrist were performed. An old nonunited ulnar ? styloid fracture is present. No acute fracture or malalignment is ? identified. No focal soft tissue abnormality is identified. ? IMPRESSION: ? 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 No acute fracture identified. ? REPORT SIGNED IN OTHER VENDOR SYSTEM 05/30/2014 ?Reported By: Rob Uriostegui MD ? CC: ? Transcribed Date/Time: 05/30/2014 (1128) ? Product Support Representative: ? Printed Date/Time: 09/12/2018 (7062) ? PAGE 1 ? Signed Report ? Procedure Note Rob Uriostegui MD - 02/13/2019 EXAM: RADIOLOGY EXPRESS CARE/EXP CARE XR EX. D/ (1111) CLINICAL INFORMATION: PAIN AND SWELLING S/P TRAUMA. DONE AT [facility] XR WRST LT MIN 3V Signs and Symptoms/Comments: Pain and swelling status post trauma. Comparison: None Findings: 4 views of the left wrist were performed. An old nonunited ulnar styloid fracture is present. No acute fracture or malalignment is identified. No focal soft tissue abnormality is identified. IMPRESSION: Old nonunited ulnar styloid fracture. No acute fracture identified. REPORT SIGNED IN OTHER VENDOR SYSTEM 05/30/2014 Reported By: Rob Uriostegui MD CC: Transcribed Date/Time: 05/30/2014 (1128) Product Support Representative: Printed Date/Time: 09/12/2018 (4674) PAGE 1 Signed Report Ez Sherman Jr., CÉSAR IMG DIAGNOSTIC IMAGING ORDERABLES documented in this encounter Visit Diagnoses Not on filedocumented in this encounter Care Teams Construction Equipment Overhauler Relationship Specialty Start Date End Date Unknown, Provider, PCP - General 06/06/14 documented as of this encounter
--- OUTSIDE RECORDS SUMMARY | 2023-12-19 14:00 | XMS_ITS | Encounter Summary ---
Author Organization [facility] Address [address] [place] [address] Care Team Providers Care Ice Skating Teacher Name Role Phone Unknown, Provider Primary Care Provider Encounter Details Date Type Department Care Team (Late st Contact Info) Description 01/22/2018 Historical Results Only [facility] Radiology Results [address] [place], [place] [address] Destini Sam PA-C [address] [place] [address] [address] [place], [place] [phone] Social History Tobacco Use Types Packs/Day Years Used Date Smoking Tobacco: Never Assessed Sex and Gender Information Value Date Recorded Sex Assigned at Not on file Gender Identity Not on file Sexual Orientation Not on file documented as of this encounter Plan of Treatment Not on file documented as of this encounter Procedures Procedure Name Priority Date/Time Associated Diagnosis Comments XR KNEE RIGHT 4 OR MORE VIEWS 01/22/2018 11:42 EDT documented in this encounter Results * XR KNEE RIGHT 4 OR MORE VIEWS (01/22/2018 11:42 EDT) Anatomical Region Laterality Modality Lower Extremities Right Other 01/22/2018 11:4 2 EDT Narrative 01/22/2018 11:42 EDT ? EXAM: RADIOLOGY EXPRESS CARE/EXP CARE KNE EX. D/ (1116) ? CLINICAL INFORMATION: ? ACUTE ON CHRONIC R KNEE PAIN ? EXAM: ?XR Right Knee, 4 or more Views ? EXAM DATE/TIME: ?01/22/2018 10:55 AM ? CLINICAL HISTORY: ?52 years old, male; Pain; Knee; Right; Additional info: Acute on ? chronic r knee pain ? TECHNIQUE: ?XR Right knee 4 or more views. ? COMPARISON: ?No relevant prior studies available. ? FINDINGS: ?Bones/joints: ??No acute fracture or dislocation is identified. ? There is mild narrowing of the medial compartment, with very mild ? tricompartmental periarticular osteophyte formation. ?Soft tissues: ??Mild fullness of the soft tissues in the ? suprapatellar region is noted. ?Vasculature: ??Atherosclerotic vascular calcifications are noted. ? IMPRESSION: ? Degenerative changes as described. ? REPORT SIGNED IN OTHER VENDOR SYSTEM 01/22/2018 ?Reported By: Al Yadav MD ? CC: ? Transcribed Date/Time: 01/22/2018 (1142) ? Rice Field Worker: ? Printed Date/Time: 09/30/2018 (0821) ? PAGE 1 ? Signed Report ? Procedure Note Al Yadav MD - 02/15/2019 EXAM: RADIOLOGY EXPRESS CARE/EXP CARE KNE EX. D/ (1116) CLINICAL INFORMATION: ACUTE ON CHRONIC R KNEE PAIN EXAM: XR Right Knee, 4 or more Views EXAM DATE/TIME: 01/22/2018 10:55 AM CLINICAL HISTORY: 52 years old, male; Pain; Knee; Right; Additional info: Acute on chronic r knee pain TECHNIQUE: XR Right knee 4 or more views. COMPARISON: No relevant prior studies available. FINDINGS: Bones/joints: No acute fracture or dislocation is identified. There is mild narrowing of the medial compartment, with very mild tricompartmental periarticular osteophyte formation. Soft tissues: Mild fullness of the soft tissues in the suprapatellar region is noted. Vasculature: Atherosclerotic vascular calcifications are noted. IMPRESSION: Degenerative changes as described. REPORT SIGNED IN OTHER VENDOR SYSTEM 01/22/2018 Reported By: Al Yadav MD CC: Transcribed Date/Time: 01/22/2018 (1142) Rice Field Worker: Printed Date/Time: 09/30/2018 (1981) PAGE 1 Signed Report Destini Sam PA-C IMG DIAGNOSTIC IMAGI NG ORDERABLES documented in this encounter Visit Diagnoses Not on filedocumented in this encounter Care Teams Ice Skating Teacher Relationship Specialty Start Date End Date Unknown, Provider, PCP - General 06/06/14 documented as of this encounter
--- OUTSIDE RECORDS SUMMARY | 2023-12-19 14:00 | XMS_ITS | Encounter Summary ---
Author Organization [facility] Address [address] [place] [address] Care Team Providers Care Dry Clipper Tender Name Role Phone Unknown, Provider Primary Care Provider [phone] Encounter Details Date Type Department Care Team (Late st Contact Info) Description 04/26/2017 Historical Results Only [facility] Lab - [address] [address] Fabrice Henson MD [address] [place] [phone] Social History Tobacco Use Types Packs/Day Years Used Date Smoking Tobacco: Never Assessed Sex and Gender Information Value Date Recorded Sex Assigned at Not on file Gender Identity Not on file Sexual Orientation Not on file documented as of this encounter Plan of Treatment Not on file documented as of this encounter Procedures Procedure Name Priority Date/Time Associated Diagnosis Comments PHARYNGITIS SCREEN - [facility] Routine 04/26/2017 13:28 EST documented in this encounter Results * PHARYNGITIS SCREEN - [facility] (04/26/2017 13:28 EST) PHARYNGITIS SCREEN - [facility] 04/28/2017 10:54 EST [facility] PHARYNGITIS SCREEN - [facility] NO GROUP A STREP ISOLATED 04/28/2017 10:54 EST [facility] 04/26/2017 13:2 8 EST 04/26/2017 18:13 EST Fabrice Henson MD CHEMISTRY & BLOOD GA S ORDERABLES [facility] documented in this encounter Visit Diagnoses Not on filedocumented in this encounter Care Teams Dry Clipper Tender Relationship Specialty Start Date End Date Unknown, Provider, PCP - General 06/06/14 documented as of this encounter
--- OUTSIDE RECORDS SUMMARY | 2023-12-19 14:00 | XMS_ITS | Referral Summary ---
Author Organization [facility] Address [address] [place] [address] Care Team Providers Care Cleaner Wall Name Role Phone Unknown, Provider Primary Care Provider Encounters Date Type Department Care Team Description 09/27/2023 Lab Requisition [facility] Pathology & Laboratory Medicine - [facility] [address] [place] [address] Outr Resulting Lab, Provider from Last 3 Months Social History Tobacco Use Types Packs/Day Years Used Date Smoking Tobacco: Never Assessed Interpersonal Safety Answer Date Record ed Physically Hurt Never 11/11/2019 Verbally Threaten Not on file 11/11/2019 Sex and Gender Information Value Date Recorded Sex Assigned at Not on file Gender Identity Not on file Sexual Orientation Not on file Plan of Treatment Not on file Procedures Procedure Name Priority Date/Time Associated Diagnosis Comments LYME AB Routine 09/26/2023 13:50 EDT from Last 3 Months Results * LYME AB (09/26/2023 13:50 EDT) Lyme Ab Negative Negative 09/28/2023 11:47 EDT [facility] Blood VENOUS BLOOD / Unknown 09/26/2023 13:50 EDT 09/27/2023 17:03 EDT Provider Outr Resulting Lab IMMUNOLOGY A ND SEROLOGY ORDERABLES [facility] [address] [place] [address] from Last 3 Months Care Teams Cleaner Wall Relationship Specialty Start Date End Date Unknown, ProviderMD PCP - General 06/06/14
--- OUTSIDE RECORDS SUMMARY | 2023-12-19 14:00 | XMS_ITS | Encounter Summary ---
Author Organization [facility] Address [address] [place] [address] Care Team Providers Care Sponge Hooker Name Role Phone Unknown, Provider Primary Care Provider Encounter Details Date Type Department Care Team (Latest Contact Info) Description 05/03/2018 9:40 EST - 05/03/2018 23:59 [facility] Hospital Encounter [facility] [address] [place] [address] Unknown, Provider, Discharge Disposition: Home or Self Care Social History Tobacco Use Types Packs/Day Years Used Date Smoking Tobacco: Never Assessed Sex and Gender Information Value Date Recorded Sex Assigned at Not on file Gender Identity Not on file Sexual Orientation Not on file documented as of this encounter Discharge Disposition Disposition Code Departure Means Destination Home or Self Senior Living documented in this encounter Plan of Treatment Not on file documented as of this encounter Visit Diagnoses Not on filedocumented in this encounter Care Teams Sponge Hooker Relationship Specialty Start Date End Date Unknown, Provider, PCP - General 06/06/14 documented as of this encounter
--- OUTSIDE RECORDS SUMMARY | 2023-12-19 14:00 | XMS_ITS | Encounter Summary ---
Author Organization [facility] Address [address] [place] [address] Care Team Providers Care Electromedical Service Engineer Name Role Phone Unknown, Provider Primary Care Provider [phone] Encounter Details Date Type Department Care Team (Latest Contact Info) Description 01/22/2018 14:16 EDT - 01/22/2018 23:59 EDT Hospital Encounter [facility] [place] [facility] [address] [place] [address] Unknown, ProviderMD Discharge Disposition: Home or Self Care Social History Tobacco Use Types Packs/Day Years Used Date Smoking Tobacco: Never Assessed Sex and Gender Information Value Date Recorded Sex Assigned at Not on file Gender Identity Not on file Sexual Orientation Not on file documented as of this encounter Discharge Disposition Disposition Code Departure Means Destination Home or Self Custodial documented in this encounter Plan of Treatment Not on file documented as of this encounter Visit Diagnoses Not on filedocumented in this encounter Care Teams Electromedical Service Engineer Relationship Specialty Start Date End Date Unknown, Provider, PCP - General 06/06/14 documented as of this encounter
--- OUTSIDE RECORDS SUMMARY | 2023-12-19 14:00 | XMS_ITS | Encounter Summary ---
Author Organization [facility] Address [address] [place] [address] Care Team Providers Care Riding Coach Name Role Phone Unknown, Provider Primary Care Provider [phone] Encounter Details Date Type Department Care Team (Late st Contact Info) Description 04/27/2018 Historical Results Only [facility] Lab - [address] [address] Lilly Mandujano PA-C [address] [place] [phone] Social History Tobacco Use Types Packs/Day Years Used Date Smoking Tobacco: Never Assessed Sex and Gender Information Value Date Recorded Sex Assigned at Not on file Gender Identity Not on file Sexual Orientation Not on file documented as of this encounter Plan of Treatment Not on file documented as of this encounter Procedures Procedure Name Priority Date/Time Associated Diagnosis Comments SYNOVIAL FLD CC/DIFF - [facility] Routine 04/27/2018 15:25 EST FLUID CULTURE - [facility] Routine 04/27/2018 15:25 EST documented in this encounter Results * FLUID CULTURE - [facility] (04/27/2018 15:25 EST) FLUID CULTURE - [facility] 05/04/2018 7:52 [facility] FLUID CULTURE - [facility] No growth. 05/04/2018 7:52 [facility] FLUID CULTURE - [facility] FLUID PROCESSED AFTER CENTRIFUGATION 04/27/2018 22:36 [facility] BACTERIA SEEN - [facility] NO 04/27/2018 22:36 EST [facility] WBC PRESENT 04/27/2018 22:36 [facility] 04/27/2018 15:2 5 EST 04/27/2018 17:41 EST Narrative [facility] - 05/04/2018 7:52 EST RT KNEE Lilly Mandujano PA-C HEMATOLOGY & PF 4 ORDERABLES [facility] * SYNOVIAL FLD CC/DIFF - [facility] (04/27/2018 15:25 EST) SYNOVIAL FLD DIFF COMMENT - [facility] 04/27/2018 20:42 [facility] Comment: 7 lining cells present. 1 eosinophil 1 basophil SYNOVIAL FLD LYMPHOCYTE - [facility] 28 % 04/27/2018 20:42 [facility] SYNOVIAL FLD MONOCYTE - [facility] 45 % 04/27/2018 20:42 EST [facility] SYNOVIAL FLD SOURCE - [facility] RIGHT KNEE 04/27/2018 19:26 [facility] SYNOVIAL FLD POLY - [facility] 18 % 04/27/2018 20:42 [facility] SYNOVIAL FLD WBC - [facility] 62 0 - 200 /ul 04/27/2018 19:03 [facility] Comment:Result compromised. Large clot present in specimen. 04/27/2018 15:2 5 EST 04/27/2018 17:41 EST Lilly Mandujano PA-C CHEMISTRY & BLO OD GAS ORDERABLES [facility] documented in this encounter Visit Diagnoses Not on filedocumented in this encounter Care Teams Riding Coach Relationship Specialty Start Date End Date Unknown, Provider, PCP - General 06/06/14 documented as of this encounter
--- OUTSIDE RECORDS SUMMARY | 2023-12-19 14:00 | XMS_ITS | Encounter Summary ---
Author Organization [facility] Address [address] [place] [address] Care Team Providers Care Insurance Examining Clerk Name Role Phone Unknown, Provider Primary Care Provider Encounter Details Date Type Department Care Team (Late st Contact Info) Description 05/03/[address] [facility] Radiology Results [address] [place] [address] Lilly Mandujano PA-C [address] [place] [phone] Social History Tobacco Use Types Packs/Day Years Used Date Smoking Tobacco: Never Assessed Sex and Gender Information Value Date Recorded Sex Assigned at Not on file Gender Identity Not on file Sexual Orientation Not on file documented as of this encounter Plan of Treatment Not on file documented as of this encounter Procedures Procedure Name Priority Date/Time Associated Diagnosis Comments MR KNEE W WO CONTRAST LEFT 05/03/2018 21:04 EST documented in this encounter Results * MR KNEE W WO CONTRAST LEFT (05/03/2018 21:04 EST) Anatomical Region Laterality Modality Lower Extremities Left Other 05/03/2018 21:0 4 EST Narrative 05/03/2018 21:04 EST ? EXAM: MAGNETIC RESONANCE IMAGING/KNEE LT ??EX. D/ (1952) ? CLINICAL INFORMATION: ? M25.562 PAIN IN LEFT KNEE ? DIFFERENTIATE SOFT TISSUE LESION SEEN ON XRAY ? EXAM: ??MR Left Lower Extremity Without and With Contrast, Knee ? EXAM DATE/TIME: ??05/03/2018 7:52 PM ? CLINICAL HISTORY: ??53 years old, male; Pain and abnormal ? findings; Abnormal imaging study; Soft tissue lesion seen on ? xray; Knee; Left; Additional info: M25.562 pain in left knee, ? differentiate soft tissue lesion seen on xray ? TECHNIQUE: ??MR of the Left Lower extremity without and with ? intravenous contrast. Exam focused on the knee. ? COMPARISON: ??CR KNEE-LEFT-3 VIEW 03/13/2018 12:21 PM ? FINDINGS: ? Small knee joint effusion is present without evidence of ? synovitis. There is a popliteal cyst extending through the ? semimembranosus bursa measuring 2 cm cross-sectional and 5 cm ? craniocaudal. No evidence of proliferative synovitis. ? Correlating with the radiographic abnormality, there is a ? well-circumscribed ovoid subdermal lesion measuring 12 mm ? transverse, 26 mm craniocaudal and 24 mm AP, superficial to the ? lateral retinaculum. Minimal thin rim of peripheral enhancement. ? No adjacent edema or infiltrative feature. It may represent a ? calcified sebaceous cyst and appears completely benign ? Bony structures are normally aligned. ? Normal overall pattern of marrow signal. No marrow replacement ? process. ? No acute fracture or osteochondral lesion. ? Minimal benign subchondral edema and cystic change in the medial ? compartment . ? Medial collateral ligament is intact. Mild subcutaneous edema is ? present superficial to the MCL, unknown etiology ? IT band, FCL, biceps femoris tendon and popliteus tendon are ? unremarkable. ? ACL and PCL have normal orientation and signal. ? Medial meniscus demonstrates peripheral extrusion of the mid ? body with degenerative tear. ? Lateral meniscus appears normal. ??No communicating tear or ? para-meniscal cyst. ? Quadriceps mechanism and patellofemoral retinacular complex are ? normal. ? PAGE 1 ? Signed Report ? (CONTINUED) ? Cartilage evaluation demonstrates or areas of full-thickness or ? near full-thickness chondral loss in the central weightbearing ? surface medial femoral condyle and adjacent medial tibial ? plateau over an area measuring roughly 3 x 2 cm. Small marginal ? osteophytes are present. Chondral surfaces in the lateral ? femorotibial compartment are maintained. Mild cartilage ? irregularity in the lateral patellar facet is present. ? IMPRESSION: ? 1. Subcutaneous well-circumscribed benign ovoid lesion ? superficial to the lateral patellofemoral retinaculum. This is ? calcified on radiographs and may represent a calcified sebaceous ? cyst or old hematoma. No concerning features and the lesion is ? felt overwhelmingly to be benign. ? 2. Degenerative osteoarthrosis of the medial femorotibial ? compartment with degenerative tear and peripheral extrusion of ? the medial meniscal body. ? 3. Mild chondromalacia lateral patellar facet ? 4. Joint effusion and popliteal cyst without evidence of ? synovitis ? REPORT SIGNED IN OTHER VENDOR SYSTEM 05/03/2018 ?Reported By: Dani Nolan MD ? CC: Lilly Mandujano PA-C ? Transcribed Date/Time: 05/03/2018 (2104) ? Assistant Professor Of Business: ? Printed Date/Time: 10/01/2018 (1005) ? PAGE 2 ? Signed Report ? Procedure Note Fei Nolan MD - 02/15/2019 EXAM: MAGNETIC RESONANCE IMAGING/KNEE LT EX. D/ (1952) CLINICAL INFORMATION: M25.562 PAIN IN LEFT KNEE DIFFERENTIATE SOFT TISSUE LESION SEEN ON XRAY EXAM: MR Left Lower Extremity Without and With Contrast, Knee EXAM DATE/TIME: 05/03/2018 7:52 PM CLINICAL HISTORY: 53 years old, male; Pain and abnormal findings; Abnormal imaging study; Soft tissue lesion seen on xray; Knee; Left; Additional info: M25.562 pain in left knee, differentiate soft tissue lesion seen on xray TECHNIQUE: MR of the Left Lower extremity without and with intravenous contrast. Exam focused on the knee. COMPARISON: CR KNEE-LEFT-3 VIEW 03/13/2018 12:21 PM FINDINGS: Small knee joint effusion is present without evidence of synovitis. There is a popliteal cyst extending through the semimembranosus bursa measuring 2 cm cross-sectional and 5 cm craniocaudal. No evidence of proliferative synovitis. Correlating with the radiographic abnormality, there is a well-circumscribed ovoid subdermal lesion measuring 12 mm transverse, 26 mm craniocaudal and 24 mm AP, superficial to the lateral retinaculum. Minimal thin rim of peripheral enhancement. No adjacent edema or infiltrative feature. It may represent a calcified sebaceous cyst and appears completely benign Bony structures are normally aligned. Normal overall pattern of marrow signal. No marrow replacement process. No acute fracture or osteochondral lesion. Minimal benign subchondral edema and cystic change in the medial compartment . Medial collateral ligament is intact. Mild subcutaneous edema is present superficial to the MCL, unknown etiology IT band, FCL, biceps femoris tendon and popliteus tendon are unremarkable. ACL and PCL have normal orientation and signal. Medial meniscus demonstrates peripheral extrusion of the mid body with degenerative tear. Lateral meniscus appears normal. No communicating tear or para-meniscal cyst. Quadriceps mechanism and patellofemoral retinacular complex are normal. PAGE 1 Signed Report (CONTINUED) Cartilage evaluation demonstrates or areas of full-thickness or near full-thickness chondral loss in the central weightbearing surface medial femoral condyle and adjacent medial tibial plateau over an area measuring roughly 3 x 2 cm. Small marginal osteophytes are present. Chondral surfaces in the lateral femorotibial compartment are maintained. Mild cartilage irregularity in the lateral patellar facet is present. IMPRESSION: 1. Subcutaneous well-circumscribed benign ovoid lesion superficial to the lateral patellofemoral retinaculum. This is calcified on radiographs and may represent a calcified sebaceous cyst or old hematoma. No concerning features and the lesion is felt overwhelmingly to be benign. 2. Degenerative osteoarthrosis of the medial femorotibial compartment with degenerative tear and peripheral extrusion of the medial meniscal body. 3. Mild chondromalacia lateral patellar facet 4. Joint effusion and popliteal cyst without evidence of synovitis REPORT SIGNED IN OTHER VENDOR SYSTEM 05/03/2018 Reported By: Dani Nolan MD CC: Lilly Mandujano PA-C Transcribed Date/Time: 05/03/2018 (8107) Assistant Professor Of Business: Printed Date/Time: 10/01/2018 (9407) PAGE 2 Signed Report Lilly Mandujano PA-C IMG MRI ORDERAB LES documented in this encounter Visit Diagnoses Not on filedocumented in this encounter Care Teams Insurance Examining Clerk Relationship Specialty Start Date End Date Unknown, Provider, PCP - General 06/06/14 documented as of this encounter
--- OUTSIDE RECORDS SUMMARY | 2023-12-19 14:00 | XMS_ITS | Encounter Summary ---
Author Organization [facility] Address [address] [place] [address] Care Team Providers Care Ship'S Carpenter Name Role Phone Unknown, Provider Primary Care Provider [phone] Encounter Details Date Type Department Care Team (Late st Contact Info) Description 08/26/2022 Lab Requisition [facility] Pathology & Laboratory Medicine - [facility] [address] [place] [address] Outr Resulting Lab, Provider Social History Tobacco Use Types Packs/Day Years [...] Procedure Name Priority Date/Time Associated Diagnosis Comments PSA TOTAL, DIAGNOSTIC Routine 08/26/2022 9:25 EDT documented in this encounter Results * PSA TOTAL, DIAGNOSTIC (08/26/2022 9:25 EDT) PSA 0.6 <=3.5 ng/mL 08/26/2022 22:13 EDT [facility] Blood VENOUS BLOOD / Unknown 08/26/2022 9:25 EDT 08/26/2022 21:16 EDT Narrative [facility] - 08/26/2022 22:13 EDT NOTE: Serum PSA concentration should not be interpreted as absolute evidence for the presence or absence of malignant disease. Assayed on Siemens ADVIA Centaur XPT using chemiluminescent technology.??Values obtained by using different assay methods cannot be used interchangeably. Provider Outr Resulting Lab CHEMISTRY & BLOOD GAS ORDERABLES [facility] [address] [place] [address] documented in this encounter Visit Diagnoses Not on filedocumented in this encounter Care Teams Ship'S Carpenter Relationship Specialty Start Date End Date Unknown, Provider, PCP - General 06/06/14 documented as of this encounter
--- OUTSIDE RECORDS SUMMARY | 2023-12-19 14:00 | XMS_ITS ---
Author Organization Unknown Address [address] [place] [place] [phone] Phone Care Team Providers Care Ginseng Farmer Name Role Phone OLIVIA Terrazsa Attending Unavailable RENEE Stephenson Primary Unavailable Results XR ANKLE LT 3V* - Completed: 08/02/2022 11:58 LOINC: [facility] [place], [place] [address] PACS TANK TRUCK ENGINE MECHANIC REPORT Patient Name: KWADWO ARVIZU MRN: Sex: : Age: [id number] M [id number] Account: Accession: Admit: StayType: [id number] 08/02/2022 CLINIC Ordered: Order ID: Submitted: Ordering Provider: 08/02/2022 11:07 [id number] BSK BRYAN BAKER Completed: Technologist: Resulted: 08/02/2022 11:07 08/02/2022 11:16 Study Description: XR ANKLE LT 3V Study Reason: LT ANKLE PAIN TECHNIQUE: 3 Views COMPARISON: None FINDINGS: Bones: No evidence of fracture. No destructive lesion. Joints: No significantjoint space narrowing. No visible joint effusion. Soft tissues: Unremarkable. No foreign body. IMPRESSION: No acute abnormality. Report Digitally Signed by Leia Damico on 08/02/2022 11:16 AM EDT Social History Type Status Start Date End Date Code Code Syst em Smoking History Never smoker (Never Smoked) [id number] SNOMED CT Sex Male Hospital Discharge Instructions Should you have any questions prior to discharge, please contact a member of your healthcare team. If you have left the hospital and have any questions, please contact your primary care physician. Reason For Referral No Data Found Plan of Treatment No Data Found Encounters Encounter Diagnosis Start Date Code Code Sys tem Idiopathic osteoarthritis 08/02/2022 [id number] SN OMED-CT Personal Care Team Section Performer Name Performer Role Active Date Inactive Da te
--- OUTSIDE RECORDS SUMMARY | 2023-12-19 14:00 | XMS_ITS | Encounter Summary ---
Author Organization [facility] Address [address] [place] [address] Care Team Providers Care Miter Operator Name Role Phone Unknown, Provider Primary Care Provider Encounter Details Date Type Department Care Team (Late st Contact Info) Description 09/27/2023 Lab Requisition [facility] Pathology & Laboratory Medicine - [facility] [address] [place], [place] [address] Outr Resulting Lab, Provider Social History Tobacco [...] Comments LYME AB Routine 09/26/2023 13:50 EDT documented in this encounter Results * LYME AB (09/26/2023 13:50 EDT) Lyme Ab Negative Negative 09/28/2023 11:47 EDT [facility] Blood VENOUS BLOOD / Unknown 09/26/2023 13:50 EDT 09/27/2023 17:03 EDT Provider Outr Resulting Lab IMMUNOLOGY A ND SEROLOGY ORDERABLES [facility] [address] [place], [place] [address] documented in this encounter Visit Diagnoses Not on filedocumented in this encounter Care Teams Miter Operator Relationship Specialty Start Date End Date Unknown, Provider, PCP - General 06/06/14 documented as of this encounter
--- OUTSIDE RECORDS SUMMARY | 2023-12-19 14:00 | XMS_ITS | Clinical Summary ---
Author Organization [facility] Address [address] [place] [address] Care Team Providers Care Site Interpreter Name Role Phone Unknown, Provider Primary Care Provider Encounters Date Type Department Care Team Description 09/27/2023 Lab Requisition [facility] Pathology & Laboratory Medicine - [facility] [address] [place] [address] Outr Resulting Lab, Provider from Last 3 Months Social History Tobacco Use Types Packs/Day Years Used Date Smoking Tobacco: Never Assessed Interpersonal Safety Answer Date Record ed Physically Hurt Never 11/11/2019 Verbally Threaten Not on file 11/11/2019 Sex and Gender Information Value Date Recorded Sex Assigned at Not on file Gender Identity Not on file Sexual Orientation Not on file Plan of Treatment Health Maintenance Due Date Last Done Comments Hepatitis C Screen 1965 Hepatitis B Vaccine (1 of 3 - 19+ 3-dose series) 01/27 COVID-19 Vaccine ( season) 2022 Procedures Procedure Name Priority Date/Time Associated Diagnosis Comments LYME AB Routine 09/26/2023 13:50 EDT from Last 3 Months Results * LYME AB (09/26/2023 13:50 EDT) Lyme Ab Negative Negative 09/28/2023 11:47 EDT [facility] Blood VENOUS BLOOD / Unknown 09/26/2023 13:50 EDT 09/27/2023 17:03 EDT Provider Outr Resulting Lab IMMUNOLOGY A ND SEROLOGY ORDERABLES [facility] [address] [place] [address] from Last 3 Months Care Teams Site Interpreter Relationship Specialty Start Date End Date Unknown, Provider, PCP - General 06/06/14
== END 2023-12-19 13:55 | disposition home or self-care (01) ==
LOC: LBN 13:54
PROVIDERS: PCP Nurse Practitioner Family; Visit Provider Surgery
DX: L72.0 Epidermal cyst (principal)
CPT/HCPCS: 88304

== ENCOUNTER 2024-06-14 15:53 | Outpatient (CLI) | payer BC, SELFPAY ==
--- NOTE | 2024-06-14 09:00 | DI.RAD_ITS ---
Exam(s) XR KNEE LT 2V AP,LAT XR KNEE RT 2V AP,LAT EXAM: XR KNEE LT 2V AP,LAT INDICATION: ANNUAL F/U BILAT TKAs. COMPARISON: CR XR KNEE LT 1V from 06/30/2023 CR XR STANDING ALIGNMENT from 06/30/2023 CR XR KNEE RT 2V AP,LAT from 06/14/2024 TECHNIQUE: 2D digital imaging was performed. Two views of both knees. FINDINGS: Stable alignment of bilateral total knee prostheses. No abnormal surrounding lucencies. DATA REPOSITORY: RADIATION DOSE DELIVERED:
== END 2024-06-14 15:54 | disposition home or self-care (01) ==
LOC: DIORS 15:53
PROVIDERS: PCP Nurse Practitioner Family; Visit Provider Student in an Organized Health Care Education/Training Program
DX: Z96.653 Presence of artificial knee joint, bilateral (principal); Z47.1 Aftercare following joint replacement surgery
CPT/HCPCS: 73560

== ENCOUNTER 2024-08-27 09:02 | Day surgery (SDC) | payer BC, SELFPAY ==
--- NOTE | 2024-08-26 14:55 | W.PM.DSUDISC ---
Date of service: 08/27/24 Discharge Plan Disposition Patient Disposition: Home Condition: Good Discharge Details Reason For Visit: screening colonoscopy Attending Provider: Dominic Velasquez Primary Care Provider: Sarah Pennington Home Meds and New Rx's Prescriptions: Continued irbesartan-hydrochlorothiazide 150-12.5 mg tablet 1 tab PO DAILY core essentials PO BID omega 6-psa-mca-fish oil [Fish Oil] 300-1,000 mg capsule 2 cap PO DAILY Procosa PO Discontinued bisacodyl [Dulcolax (bisacodyl)] 5 mg tablet,delayed release (DR/EC) 5 mg PO ONCE Qty: 4 0RF Rx Instructions: Take per colonoscopy instructions provided by ordering providers office polyethylene glycol 3350 17 gram/dose powder 17 g PO ONCE Qty: 238 0RF Rx Instructions: Take per colonoscopy instructions provided by ordering providers office Discharge Instructions Instructions: Colon polyps Additional Instructions: Liliam, it was great meeting you today, and I hope you are comfortable through the procedure and feel well this afternoon. Things went very smoothly. I did find, and removed, 1 small polyp in your rectum today. Based on its appearance, I suspect this might be a hyperplastic polyp, which poses no risk at all, but given your history, I did go ahead and remove this today just to be safe. I will send this off to the pathologist for the review. The analysis of the polyp takes about a week or 2 to get back, but once my office has that information, we will be in touch with recommendations for future colonoscopies. If you need anything or have any questions, please do not hesitate to call. 1. If tolerated, consume a soft, low fiber diet for 1-2 days. 2[address] Do not drive, drink alcohol, operate machinery, make critical decisions, or do activities that require coordination or balance for 24 hours. 3. Because air was put into your colon during the procedure, expelling air from your rectum (passing gas or farting) is normal. 4. You may not have a bowel movement for 1-3 days because of the colonoscopy prep. This is normal. 5. Go directly to the emergency room if you notice any of the following: Develop chills (warm to touch), or if you have a thermometer and your temperature is above 101 Difficulty breathing or difficultly swallowing Persistent vomiting Severe abdominal pain, other than gas cramps Severe chest pain Black, tarry stools Any bleeding ? exceeding one tablespoon 6. Call your physician if the site where your intravenous was started becomes red, swollen, painful, and warm to touch. 7. Your physician has reviewed your pre-procedure medications. Please continue to take those medications as previously ordered. You will be given specific information/education regarding any changes to your medications before leaving. Stand Alone Forms: Anesthesia Discharge Inst., Colonoscopy Post Instructions, Zafar Flower (DSU) Activity:: Activity as Tolerated Diet:: As Tolerated Discharge Orders Discharge Orders: Discharge Order (Routine); Ordered 08/26/24 Ordered By: Dominic Velasquez DS: Diagnosis Discharge Diagnosis (1) Encounter for screening colonoscopy: Status: Acute Asessment and Plan: Follow-up on polypectomy results
--- NOTE | 2024-08-26 14:57 | COLE_ITS ---
Date of service: 08/27/24 Time of Service: 11:00 Colonoscopy Report Date of procedure: 08/27/24 Pre-op diagnosis general: screening colonoscopy Post-op diagnosis procedure note: other (Rectal polyp) Procedure: colonoscopy with polypectomy Surgeon: Dominic Velasquez Anesthesia Type: General:No Airway Estimated blood loss (mL): 5 Pathology: other (0.25 cm flat rectal polyp) Complications: None Disposition: same day Indications: Liliam is a 59 year old man who needs his next screening colonoscopy Prep: Miralax/Dulcolax Procedure Start Time: 10:39 Procedure End Time: 10:55 Retraction Time: 11 Findings: 0.25 cm flat rectal polyp Procedure Description: After the induction of anesthesia, and with the patient in left lateral decubitus position, I began by performing an external anorectal exam.? Perineum and skin were normal, as was the anal verge.? There was no evidence of external hemorrhoids.? Next, I performed a digital rectal exam.? I did not appreciate any abnormal findings.? Next, I advanced a colonoscope into the rectal vault.? I performed retroflexion.? This was normal.? In the midportion of the rectal vault was a 0.25 cm flat polyp. Narrowband imaging was used to assist with the analysis. Clinically, this appeared most consistent with a hyperplastic polyp, but given his history of adenomatous polyps, I did perform cold forceps polypectomy just to be safe. There was minimal bleeding at the site. Using insufflation, I then advanced the colonoscope beyond the rectal folds and into the sigmoid colon before advancing towards the cecum.? The scope was noted to be in the cecum by identification of the ileocecal valve and appendiceal orifice.? I then began withdrawing the colonoscope using repeated irrigation as necessary for full evaluation of the colonic mucosa. ?Once the scope was withdrawn to the level of the rectum, great care was taken to examine portions of the rectal folds.? Aside from the previously mentioned polypectomy site, there was nothing else out of the ordinary. Finally, the scope was withdrawn and the patient was brought to the same-day surgery recovery unit as the anesthetic wore off. ?The findings and instructions were shared with the patient prior to discharge. [place] Bowel Prep [place] Bowel Prep Right Colon: 3 Left Colon: 3 Transverse Colon: 3 Total Score: 9
[2024-08-27 09:23] VITALS: BP 135/86; PULSE 56; RESP 16; TEMP 36.4; O2SAT 97
[2024-08-27] MEDS: Lactated Ringers 1,000 ML 80 ML IV (09:34)
--- NOTE | 2024-08-27 09:41 | W.ANESPRE ---
General Info Date of Service Date Performed: 08/27/24 Height: 5 ft 10 in Weight: 121 kg Body Mass Index (BMI): 38.2 Surgical Procedure: Operation Date: 08/27/24 10:35 Proposed Procedure Side Surgeon p Colonoscopy Dominic Velasquez MD Meds Allergies and Home Medications Allergies Allergy/AdvReac Type Severity Reaction Status Date / Time codeine AdvReac Intermediate Nausea Verified 08/24/24 09:21 Home Medication ?Medication ?Instructions ?Recorded irbesartan 150 1 tab PO DAILY 05/09/23 mg-hydrochlorothiazide 12.5 mg tablet Procosa PO 11/03/23 core essentials PO BID 11/03/23 omega 2-lcc-tuf-fish oil 300 2 cap PO DAILY 11/03/23 mg-1,000 mg capsule (Fish Oil) Current Visit Medications: Current Medications Generic Name Dose Route Start Last Admin Trade Name Freq PRN Reason Stop Dose Admin Ringer's Solution 1,000 mls @ 80 mls/hr 08/27/24 06:00 08/27/24 09:34 IV 08/27/24 23:59 80 mls/hr INFUSION MERVIN Administration IV Miscellaneous Supplies 1 each 08/27/24 06:00 Iv Access IV 08/27/24 23:59 DIRECTED MERVIN Ondansetron HCl 4 mg 08/26/24 14:58 Ondansetron 4 Mg/2 Ml Vial IVP 09/25/24 14:57 Q4H PRN PRN Nausea / Vomiting Sodium Chloride 0 ml 08/27/24 06:00 Normal Saline Flush 10 Ml Syr IV 08/27/24 23:59 PRN PRN Sodium Chloride 0 ml 08/27/24 06:00 Normal Saline 10 Ml Vial IJ 08/27/24 23:59 DIRECTED PRN Sterile Water 0 ml 08/27/24 06:00 Water,Injection,Sterile 10 Ml Vial IJ 08/27/24 23:59 DIRECTED PRN PFSH Active Problems Active Problems: Problem Status Onset Code Encounter for screening colonoscopy Acute Z12.11 Epidermoid cyst of skin Acute L72.0 Medical History Medical History Tubular adenoma (~05/25/18) Fatigue MARILYN (obstructive sleep apnea) Essential hypertension Surgical History Surgical History 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) History of colonoscopy (~05/25/18) [facility] [place], [place] Tobacco Smoking/Tobacco Use Status: Never Passive smoking exposure: No Alcohol Alcohol Intake: current Alcohol intake frequency: a few times a week Substance Use Substance use: Never Substance use type: does not use Vital Signs and Lab Results Vital Signs Most Recent Vital Signs in EMR: Most Recent Vital Signs Temp Pulse Resp BP Pulse Ox 36.4 C L 56 L 16 135/86 97 08/27/24 09:23 08/27/24 09:23 08/27/24 09:23 08/27/24 09:23 08/27/24 09:23 Lab Results Blood Type / Crossmatch: No Data to Display Complete Blood Count: No Data to Display Complete Metabolic Panel: No Data to Display Liver Function Panel: No Data to Display Coagulation Panel: No Data to Display Cardiac Panel: No Data to Display Arterial Blood Gas: No Data to Display Venous Blood Gas: No Data to Display Pancreas Panel: No Data to Display Thyroid Panel: No Data to Display Infectious Disease: No Data to Display Blood Cultures: No Data to Display Toxicology Panel: No Data to Display Anesthesia Assessment and Plan Anesthesia History Personal History: No History of Anesthesia Complications Family History: No Family History of Anesthesia Complications Exercise Tolerance Exercise Tolerance: Metabolic Equivalents>4 Pertinent Negatives Pertinent Negatives: No Symptoms of GERD, No Major Cardiovascular Symptoms or Complaints and No Major Pulmonary Symptoms or Complaints Cardiac & Pulmonary Exam Cardiac Exam: Normal S1/S2 Heart Sounds Pulmonary Exam: Clear Bilateral Breath Sounds Implantable Cardiac Device Does patient have a Pacemaker or an ICD?: No Airway Exam Known Difficult Airway: No Mallampati Class: 3 Mouth Opening: Narrow (< 3cm) Thyromental Distance: Greater than 3 cm Neck Range of Motion: Full ROM Neck Circumference: Normal Teeth Condition: Normal Dentition (missing tooth L upper side ) ASA Classification ASA Score: ASA 2 Emergency Case?: No NPO Status NPO Status: NPO Clears >2 hours, Solids >8 hours Anesthesia Plan Resuscitation Status: Full Code Anesthesia Technique: General Anesthesia Airway Planned: Natural Airway Monitors Used: Standard Monitors
[2024-08-27 09:43] VITALS: BMI 38.2
--- NOTE | 2024-08-27 10:41 | BOWEL_PTH ---
PATIENT: Liliam Gee LOC: [facility] U#:[id number] AGE/SX: 59/M ROOM: RE08/27/[address]: Dominic Velasquez MD : [id number] BED: DIS: 08/27/2024 SPEC #: [id number] RECD: 08/27/24 12:33 STATUS: KARENA REQ #: [id number] NISHA: 08/27/24 10:[address]: Dominic Velasquez DEPT: Surgical Specimen RECD BY: Lizzette Jerry ENTERED: 08/27/24 12:34 SP TYPE: Bowel OTHR DR: Sarah Pennington Tissues: 1 - BIOPSY BOWEL Procedures: GROSS AND MICRO LEVEL 4 Comments: [id number]
[2024-08-27 10:57] VITALS: BP 113/84; PULSE 67; RESP 16; TEMP 36.2; O2SAT 97
--- NOTE | 2024-08-27 11:23 | W.ANESPOSTOP ---
Postoperative Evaluation Date, Time and Location Date Performed: 08/27/24 Time Performed: 11:01 Patient Location: Day Surgery Unit Vital Signs Most Recent Imported Vital Signs: Most Recent Vital Signs Temp Pulse Resp BP Pulse Ox 36.2 C L 67 16 113/84 97 08/27/24 10:57 08/27/24 10:57 08/27/24 10:57 08/27/24 10:57 08/27/24 10:57 Pain Score Most Recent Pain Score: Most Recent Pain Score Pain Level 0 08/27/24 10:57 Assessment Mental Status: Awake (Alert & Oriented to Patient Baseline) Airway and Respiratory Function: Patent airway with normal (patient baseline) respiratory exam Cardiovascular Function: Hemodynamically Stable Hydration Status: Adequately Hydrated Nausea & Vomiting: No Nausea or Vomiting Pain: Pt. Denies Any Pain Peripheral Nerve Block: Patient did not receive a nerve block
[2024-08-27 11:24] VITALS: BP 146/89; PULSE 57; RESP 16; TEMP 36.4; O2SAT 100
== END 2024-08-27 11:52 | disposition home or self-care (01) ==
LOC: SUR 09:02
PROVIDERS: PCP Nurse Practitioner Family; Visit Provider Surgery
PROC: 0DJD8ZZ Inspection of Lower Intestinal Tract, Via Natural or Artificial Opening Endoscopic (ICD-10-PCS; CPT 45378; principal; 2024-08-27 10:30)
DX: Z12.11 Encounter for screening for malignant neoplasm of colon (principal); K62.1 Rectal polyp
CPT/HCPCS: 45380; 88305; J2003; J2704

== ENCOUNTER 2024-10-08 17:52 | Outpatient (REF) | payer BC, SELFPAY ==
[2024-10-08 15:53] LABS: ALT 52 U/L (16-63); AST 38 U/L (15-37); Albumin 4.1 g/dL (3.4-5.0); Alkaline Phosphatase 74 U/L (46-116); Anion Gap 6.9 mmol/L (3-11); BUN 18 mg/dL (7-18); Bilirubin, Total 0.7 mg/dL (0.2-1.0); CO2 29.1 mmol/L (21.0-32.0); CREATININE 0.9 mg/dL (0.70-1.30); Calcium 9.9 mg/dL (8.5-10.1); Calculated LDL 158 mg/dL (<100); Chloride 102 mmol/L (98-107); Cholesterol 227 mg/dL (<200); Estimated GFR 97.78 (mL/min/1.73m2); Glucose 90 mg/dL (74-106); HDL Cholesterol 61 mg/dL (>or=40); Hemoglobin A1C 5.4 % (<5.7); Potassium 4.3 mmol/L (3.5-5.1); Sodium 138 mmol/L (136-145); Total Protein 7.6 g/dL (6.4-8.2); Triglyceride 44 mg/dL (<150)
== END 2024-10-08 17:53 | disposition home or self-care (01) ==
LOC: NCHCN 17:52
PROVIDERS: PCP Nurse Practitioner Family; Visit Provider Nurse Practitioner Family
DX: E66.9 Obesity, unspecified (principal); I10 Essential (primary) hypertension
CPT/HCPCS: 80053; 80061; 83036